=== PATIENT | male | born 1955 | race Caucasian/White ===

== ENCOUNTER → 2020-07-17 14:47 | Outpatient (REF) | payer BC, SELFPAY ==
--- NOTE | 2020-07-17 15:00 | CA_ITS ---
Transthoracic Echocardiogram Patient (Last, First, Middle): José Miguel Salazar R Gender: Male Date of : 1955 Age: 65 Procedure Date: 07/17/2020 Procedure Type: Transthoracic Echocardiogram Location: OP Height: 182.88 cm Weight: 80.74 kg BSA: 2.03 m2 Heart Rate: bpm BP: 118 / 60 mmHg Exotic Dancer: Referring MD: Babar Perrin MD Clay Plant Treater: Allen Kathleen MD Symptoms: Z86.79 PER HX THORACIC ANEURYSM Study Quality: Fair ECG Rhythm: Sinus Conclusions: - 1. Normal LV systolic and diastolic function 2. Severely dilated ascending aorta with no clear dissection flap 3. Moderately severe eccentric aortic regurgitation 4. Normal RV systolic pressure 5. No gross pericardial effusion Findings Left Ventricle Normal left ventricular size, thickness, and systolic function. The visually estimated ejection fraction is between 55-60%. Diastolic function is normal for age. Right Ventricle Normal right ventricular cavity size and systolic function. Atria The left atrium is normal in size. Aortic Valve There is holodiastolic flow reversal present in the descending aorta. Normal aortic valve structure and function. There is no aortic valve stenosis. There is moderate to severe aortic valve regurgitation. Mitral Valve Normal mitral valve structure and function. There is trace mitral valve regurgitation. There is no mitral valve stenosis. Pulmonic Valve The pulmonic valve is likely normal. There is trace pulmonic valve regurgitation. Tricuspid Valve The right ventricular systolic pressure is normal. The right ventricular systolic pressure is 22 mmHg. Normal right atrial pressure. There is no evidence of pulmonary hypertension. Great Vessels The pulmonary artery was not well visualized. There is severe dilatation of the ascending aorta measuring 5.40 cm. History reported of aortic dissection repair in November this year. There is no clear dissection SLAP noted Venous The inferior vena cava is normal in size and collapses greater than 50% with inspiration. Pericardium/Pleural There is no evidence of pericardial effusion. Prior Study Comparison No prior study available for comparison. Recommendations, Care & Conclusions Consider a VIRGNE if clinically appropriate. Measurements 2D Linear Measurements IVSd: 1.15 0.6-0.9/0.6-1.0 cm LVIDd: 4.92 3.9-5.3/4.2-5.9 cm LVIDd Index: 2.42 2.4-3.2/2.2-3.1 cm/m2 LVIDs: 3.79 2.0-3.6 cm LVPWd: 1.12 0.7-1.1 cm Ao Root: 3.90 2.1-3.5 cm LA Diam: 3.70 2.7-3.8/3.0-4.0 cm LAIDs Index: 1.82 1.5-2.3 cm/m2 LV Mass: 262.70 67-162/88-224 g LV Mass Index: 129.41 43-95/49-115 g/m2 LVOT Diam: 2.60 3.0+(-)1.3 cm 2D Systolic Function EF 4C: 49.30 >55% EF 2C: 58.80 >55% EF BiP: 55.40 >55% Mitral Valve MV Pk E: 0.57 MV PK A: 0.29 MV Decel Time: 306.00 E/A: 2.00 E'Lateral: 14.20 E'Medial: 11.30 E/E' Med: 5.10 E/E' Lat: 4.00 PHT: 90.00 MVA PHT: 2.44 Decel [place]: 1.87 Aortic Valve AoV Pk Torres: 1.40 AoV Mn Torres: 0.87 AoV VTI: 0.30 AoV Pk Grad: 8.00 Aov Mn Grad: 4.00 SONIA Cont.VTI: 4.36 AI Pk Torres: 3.38 AI [place]: 2.63 LVOT LVOT Pk Torres: 1.02 LVOT Mn Torres: 0.71 LVOT VTI: 0.24 LVOT Pk Grad: 4.00 LVOT Mn Grad: 2.00 LVOT Diam: 2.60 LVOT Area: 5.31 Diastolic Function MV Pk E: 0.57 MV Pk A: 0.29 E/A: 2.00 E'Medial: 11.30 E/E' Med: 5.10 E' Laterial: 14.20 E/E' Lat: 4.00 Tricuspid Valve TR Pk Torres: 2.17 TR Pk Grad: 19.00 RA Press: 3.00 RVSP: 22.00 Great Vessels Aorta Ao Root-2D: 3.90 2.0-3.7 cm Ao Asc: 5.40 2.1-3.4 cm Pulmonary Valve PV Pk Torres: 0.81 Peak PV Grad: 3.00 Updated in Other Vendor System with Status of Final Allen Kathleen MD electronically signed on 07/19/2020 1:47:46 PM with status of Final
[2020-07-17 16:06] LABS: MANUAL DIFF FLAG NO
[2020-07-17 16:15] LABS: Basophils Percent Auto 0.2 % (0-2); Eosinophils Absolute Auto 0.1 X10*3/uL (0.0-0.4); Eosinophils Percent Auto 2.4 % (0-4); Hematocrit 42.3 % (42-52); Hemoglobin 14.6 g/dl (14.0-18.0); Imm Gran Abs Auto 0.02 X10*3/uL (0.00-0.03); Imm Gran Pct Auto 0.4 % (0.0-0.4); Lymphocytes Absolute Auto 1.8 X10*3/uL (1.2-4.9); Lymphocytes Percent Auto 32.2 % (20-40); Mean Corpuscular HGB Conc 34.5 g/dl (31.0-36.0); Mean Corpuscular Hemoglobin 30.6 pg (27.0-33.0); Mean Corpuscular Volume 88.7 fL (80-98); Mean Platelet Volume 9.2 fL (9.4-12.4); Monocytes Absolute Auto 0.6 X10*3/uL (0.1-1.2); Neutrophils Percent Auto 54.8 % (45-73); Platelet Count 169 X10*3/uL (160-400); Red Blood Count 4.77 X10*6/uL (4.60-5.80); Red Cell Distribution Width 12.7 % (11.0-16.0); White Blood Count 5.5 X10*3/uL (4.8-10.8)
[2020-07-17 16:44] LABS: Alanine Aminotransferase 11 U/L (0-40); Albumin Level 4.1 g/dL (3.5-5.0); Alkaline Phosphatase 53 U/L (39-117); Anion Gap 16 (12-20); Aspartate Amino Transferase 15 U/L (5-37); Bilirubin Total 0.6 mg/dL (0.0-1.0); Blood Urea Nitrogen 18 mg/dL (9-16); C Reactive Protein 0.21 mg/dL (< or = 0.50); Calcium 8.5 mg/dL (8.4-10.2); Carbon Dioxide 28 mmol/L (22-29); Chloride 103 mmol/L (96-108); Estimated Glomerular Filt Rate > 60; Glucose Random 83 mg/dL (60-115); Potassium 4.6 mmol/l (3.3-5.1); Sodium 142 mmol/L (135-145); Total Protein 6.6 g/dL (6.5-8.0)
== END ==
LOC: HO.CARD 14:47
PROVIDERS: PCP Internal Medicine; Visit Provider Internal Medicine
DX: I10 Essential (primary) hypertension (principal); Z86.79 Personal history of other diseases of the circulatory system
CPT/HCPCS: 36415; 80053; 82550; 85025; 86140; 93306

== ENCOUNTER 2020-12-23 08:50 | Outpatient (REF) | payer BC, SELFPAY ==
--- NOTE | ~2020-12-23 | XR_ITS ---
EXAMINATION: XR FOOT, RIGHT CLINICAL INFORMATION: Pain. COMPARISON: None TECHNIQUE: AP, lateral, and oblique views of the right foot. FINDINGS: There is an oblique subacute/chronic appearing fracture through the lateral head of the 3rd middle phalanx. There appears to be partial osseous bridging across the fracture line. No additional fracture. No dislocation. Prominent joint space narrowing with marginal osteophytes throughout the interphalangeal joints as well as at the first metatarsophalangeal joint. Small plantar and dorsal calcaneal enthesophytes. XR/XR foot RT min 3V IMPRESSION: 1. Oblique, subacute/chronic appearing fracture through the lateral head of the 3rd middle phalanx. 2. 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 3. Plantar and dorsal calcaneal spurs.
[2020-12-23 09:37] LABS: MANUAL DIFF FLAG NO
[2020-12-23 09:44] LABS: Basophils Percent Auto 0.2 % (0-2); Eosinophils Absolute Auto 0.1 X10*3/uL (0.0-0.4); Eosinophils Percent Auto 2.1 % (0-4); Hematocrit 41.9 % (42-52); Imm Gran Abs Auto 0.01 X10*3/uL (0.00-0.03); Imm Gran Pct Auto 0.2 % (0.0-0.4); Lymphocytes Absolute Auto 1.8 X10*3/uL (1.2-4.9); Mean Corpuscular HGB Conc 33.4 g/dl (31.0-36.0); Mean Corpuscular Hemoglobin 29.9 pg (27.0-33.0); Mean Corpuscular Volume 89.3 fL (80-98); Mean Platelet Volume 9.8 fL (9.4-12.4); Monocytes Absolute Auto 0.7 X10*3/uL (0.1-1.2); Monocytes Percent Auto 13.6 % (2-11); Neutrophils Absolute Auto 2.3 X10*3/uL (2.0-8.3); Neutrophils Percent Auto 47.9 % (45-73); Platelet Count 168 X10*3/uL (160-400); Red Blood Count 4.69 X10*6/uL (4.60-5.80); Red Cell Distribution Width 13.5 % (11.0-16.0); White Blood Count 4.9 X10*3/uL (4.8-10.8)
[2020-12-23 09:56] LABS: Alanine Aminotransferase 11 U/L (0-40); Albumin Level 4.3 g/dL (3.5-5.0); Alkaline Phosphatase 47 U/L (39-117); Anion Gap 12 (12-20); Aspartate Amino Transferase 14 U/L (5-37); Bilirubin Total 0.9 mg/dL (0.0-1.0); Blood Urea Nitrogen 18 mg/dL (9-16); Calcium 9.2 mg/dL (8.4-10.2); Carbon Dioxide 27 mmol/L (22-29); Chloride 106 mmol/L (96-108); Cholesterol 90 mg/dL; Estimated Glomerular Filt Rate > 60; Glucose Fasting 89 mg/dL (60-99); HDL Cholesterol 57 mg/dL; LDL Cholesterol Calculated 27 mg/dl; Potassium 4.4 mmol/L (3.3-5.1); Sodium 141 mmol/L (135-145); Total Protein 6.8 g/dL (6.5-8.0); Triglycerides 31 mg/dL
[2020-12-23 10:15] LABS: Prostate Specific Antigen 1.31 ng/mL (<0.05-4.0)
== END 2020-12-23 08:51 | disposition home or self-care (01) ==
LOC: HO.LAB 08:50
PROVIDERS: PCP Internal Medicine; Visit Provider Internal Medicine
DX: Z00.00 Encounter for general adult medical examination without abnormal findings (principal); M79.671 Pain in right foot; Z12.5 Encounter for screening for malignant neoplasm of prostate
CPT/HCPCS: 36415; 73630; 80053; 80061; 84153; 85025

== ENCOUNTER 2021-12-20 07:33 | Outpatient (REF) | payer BC, SELFPAY ==
[2021-12-20 07:44] LABS: MANUAL DIFF FLAG NO
[2021-12-20 08:01] LABS: Basophils Percent Auto 0.5 % (0-2); Eosinophils Absolute Auto 0.2 X10*3/uL (0.0-0.4); Eosinophils Percent Auto 3.4 % (0-4); Hematocrit 43.5 % (42.0-52.0); Hemoglobin 14.9 g/dl (14.0-18.0); Imm Gran Abs Auto 0.02 X10*3/uL (0.00-0.03); Imm Gran Pct Auto 0.3 % (0.0-0.4); Lymphocytes Absolute Auto 2.5 X10*3/uL (1.2-4.9); Lymphocytes Percent Auto 38.4 % (20-40); Mean Corpuscular HGB Conc 34.3 g/dl (31.0-36.0); Mean Corpuscular Hemoglobin 30.2 pg (27.0-33.0); Mean Corpuscular Volume 88.1 fL (80.0-98.0); Mean Platelet Volume 9.2 fL (9.4-12.4); Monocytes Absolute Auto 0.7 X10*3/uL (0.1-1.2); Monocytes Percent Auto 10.3 % (2-11); Neutrophils Absolute Auto 3.1 x10*3/uL (2.0-8.3); Neutrophils Percent Auto 47.1 % (45-73); Platelet Count 184 X10*3/uL (160-400); Red Blood Count 4.94 X10*6/uL (4.60-5.80); Red Cell Distribution Width 12.8 % (11.0-16.0); White Blood Count 6.5 X10*3/uL (4.8-10.8)
[2021-12-20 08:22] LABS: Alanine Aminotransferase 9 U/L (0-40); Albumin Level 4.1 g/dL (3.5-5.0); Alkaline Phosphatase 51 U/L (39-117); Anion Gap 10 (12-20); Aspartate Amino Transferase 13 U/L (5-37); Blood Urea Nitrogen 17 mg/dL (9-16); Calcium 9.5 mg/dL (8.4-10.2); Carbon Dioxide 29 mmol/L (22-29); Chloride 107 mmol/L (96-108); Cholesterol 87 mg/dL; Estimated Glomerular Filt Rate > 60; Glucose Fasting 91 mg/dL (60-99); HDL Cholesterol 51 mg/dL; LDL Cholesterol Calculated 30 mg/dl; Potassium 4.3 mmol/L (3.3-5.1); Sodium 142 mmol/L (135-145); Total Protein 6.7 g/dL (6.5-8.0); Triglycerides 32 mg/dL
[2021-12-20 08:40] LABS: Prostate Specific Antigen 2.33 ng/mL (<0.05-4.0)
== END 2021-12-20 07:34 | disposition home or self-care (01) ==
LOC: HO.LAB 07:33
PROVIDERS: PCP Internal Medicine; Visit Provider Internal Medicine
DX: Z12.5 Encounter for screening for malignant neoplasm of prostate (principal); N40.0 Benign prostatic hyperplasia without lower urinary tract symptoms; Z86.73 Personal history of transient ischemic attack (TIA), and cerebral infarction without residual deficits
CPT/HCPCS: 36415; 80053; 80061; 84153; 85025

== ENCOUNTER → 2022-01-07 14:05 | Outpatient (REF) | payer BC, SELFPAY ==
--- NOTE | 2022-01-07 14:00 | CA_ITS ---
Transthoracic Echocardiogram Patient (Last, First, Middle): José Miguel Salazar R Gender: Male Date of : 1955 Age: 66 Procedure Date: 01/07/2022 Procedure Type: Transthoracic Echocardiogram Location: OP Height: 180.34 cm Weight: 81.19 kg BSA: 2.01 m2 Heart Rate: bpm BP: 110 / 54 mmHg Education Coordinator: SB Referring MD: Babar Perrin MD Church Communications Administrator: Allen Kathleen MD Symptoms: I35.1 AR MURMUR Study Quality: Good ECG Rhythm: Bradycardia Conclusions: - 1. Mildly dilated left ventricle with LVEF of 60 65% 2. Severe aortic regurgitation although this was not quantified 3. Severe enlargement of ascending aorta 4. Normal RV systolic pressure 5. No pericardial effusion Findings Left Ventricle Mildly increased left ventricular cavity size. There is normal left ventricular wall thickness. The left ventricular systolic function is normal. The visually estimated ejection fraction is between 60-65%. Spectral Doppler is indicative of a normal filling pattern. Right Ventricle Normal right ventricular cavity size and systolic function. Atria The left atrium is normal in size. There is no evidence of interatrial shunt. The right atrium is normal in size. Aortic Valve Normal aortic valve structure and function. There is no aortic valve stenosis. There is severe aortic valve regurgitation. Mitral Valve Normal mitral valve structure and function. There is trace mitral valve regurgitation. There is no mitral valve stenosis. Pulmonic Valve The pulmonic valve was not well visualized. Tricuspid Valve Normal tricuspid valve structure. There is trace tricuspid valve regurgitation. The right ventricular systolic pressure is normal. Normal right atrial pressure. There is no evidence of pulmonary hypertension. Great Vessels The pulmonary artery was not well visualized. There is severe dilatation of the ascending aorta measuring 5.10 cm. Venous The inferior vena cava is normal in size and collapses greater than 50% with inspiration. Pericardium/Pleural There is no evidence of pericardial effusion. Prior Study Comparison Changes noted compared to prior study dated: 07/17/2020. LV cavity appears to be mildly dilated. Aortic regurgitation appears to be severe. Finding discussed with Dr. Perrin Recommendations, Care & Conclusions Consider a VIRGEN if clinically appropriate. Measurements 2D Linear Measurements IVSd: 0.69 0.6-0.9/0.6-1.0 cm LVIDd: 6.11 3.9-5.3/4.2-5.9 cm LVIDd Index: 3.04 2.4-3.2/2.2-3.1 cm/m2 LVIDs: 4.45 2.0-3.6 cm LVPWd: 0.88 0.7-1.1 cm LA Diam: 3.60 2.7-3.8/3.0-4.0 cm LAIDs Index: 1.79 1.5-2.3 cm/m2 LV Mass: 234.25 67-162/88-224 g LV Mass Index: 116.54 43-95/49-115 g/m2 LVOT Diam: 2.70 3.0+(-)1.3 cm Mitral Valve MV Pk E: 0.77 MV PK A: 0.31 MV Decel Time: 173.00 E/A: 2.50 E'Lateral: 11.50 E'Medial: 9.57 E/E' Med: 8.10 E/E' Lat: 6.70 PHT: 51.00 MVA PHT: 4.[address]: 4.47 Aortic Valve AoV Pk Torres: 1.38 AoV Mn Torres: 0.93 AoV VTI: 0.28 AoV Pk Grad: 8.00 Aov Mn Grad: 4.00 SONIA Cont.VTI: 5.04 LVOT LVOT Pk Torres: 1.20 LVOT Mn Torres: 0.82 LVOT VTI: 0.25 LVOT Pk Grad: 6.00 LVOT Mn Grad: 3.00 LVOT Diam: 2.70 LVOT Area: 5.73 Diastolic Function MV Pk E: 0.77 MV Pk A: 0.31 E/A: 2.50 E'Medial: 9.57 E/E' Med: 8.10 E' Laterial: 11.50 E/E' Lat: 6.70 Right Ventricle TAPSE (mm): 20.30 TVS' Torres: 9.46 Tricuspid Valve TR Pk Torres: 2.16 TR Pk Grad: 19.00 RA Press: 3.00 RVSP: 22.00 Great Vessels Aorta Sinus of Valsalva: 3.84 2.0-3.[address] [place]: 4.23 1.7-3.4 cm Ao Asc: 5.10 2.1-3.4 cm Ao Arch: 4.40 Ao Desc: 1.30 Pulmonary Valve PV Pk Torres: 0.68 Peak PV Grad: 2.00 Updated in Other Vendor System with Status of Final Allen Kathleen MD electronically signed on 01/08/2022 4:58:26 PM with status of Final
== END ==
LOC: HO.CARD 14:05
PROVIDERS: Visit Provider Internal Medicine
DX: I35.1 Nonrheumatic aortic (valve) insufficiency (principal)
CPT/HCPCS: 93306

== ENCOUNTER → 2022-01-27 15:05 | Outpatient (BNVA) | payer BC, SELFPAY | PROVIDERS: PCP Internal Medicine; Referring Provider Internal Medicine; Visit Provider Internal Medicine Cardiovascular Disease | DX: I71.2 Thoracic aortic aneurysm, without rupture (principal); I35.1 Nonrheumatic aortic (valve) insufficiency | CPT/HCPCS: 93005 ==

== ENCOUNTER 2022-01-29 11:08 | Outpatient (REF) | payer BC, SELFPAY ==
[2022-01-29 11:55] LABS: Hematocrit 42.6 % (42.0-52.0); Hemoglobin 14.6 g/dl (14.0-18.0); Mean Corpuscular HGB Conc 34.3 g/dl (31.0-36.0); Mean Corpuscular Hemoglobin 30.5 pg (27.0-33.0); Mean Corpuscular Volume 88.9 fL (80.0-98.0); Mean Platelet Volume 9.4 fL (9.4-12.4); Platelet Count 169 X10*3/uL (160-400); Red Blood Count 4.79 X10*6/uL (4.60-5.80); Red Cell Distribution Width 12.8 % (11.0-16.0); White Blood Count 5.8 X10*3/uL (4.8-10.8)
[2022-01-29 12:01] LABS: INTERNATIONAL NORM RATIO 1.1 (0.9-1.1); Prothrombin Time 12.9 SEC (9.9-13.0)
[2022-01-29 12:10] LABS: Anion Gap 11 (12-20); Blood Urea Nitrogen 18 mg/dL (9-16); Calcium 9.6 mg/dL (8.4-10.2); Carbon Dioxide 27 mmol/L (22-29); Chloride 109 mmol/L (96-108); Estimated Glomerular Filt Rate > 60; Glucose Random 100 mg/dL (60-115); Potassium 4.4 mmol/L (3.3-5.1); Sodium 143 mmol/L (135-145)
[2022-01-29 12:18] LABS: B Type Natriuretic Peptide 105 pg/mL (<100)
== END 2022-01-29 11:09 | disposition home or self-care (01) ==
LOC: HO.LAB 11:08
PROVIDERS: PCP Internal Medicine; Visit Provider Internal Medicine Cardiovascular Disease
DX: I35.1 Nonrheumatic aortic (valve) insufficiency (principal)
CPT/HCPCS: 36415; 80048; 83880; 85027; 85610

== ENCOUNTER 2023-04-29 08:56 | Outpatient (REF) | payer BC, SELFPAY ==
[2023-04-29 09:20] LABS: MANUAL DIFF FLAG NO
[2023-04-29 10:06] LABS: Basophils Percent Auto 0.3 % (0-2); Eosinophils Absolute Auto 0.2 X10*3/uL (0.0-0.4); Eosinophils Percent Auto 2.3 % (0-4); Hematocrit 44.3 % (42.0-52.0); Hemoglobin 15.2 g/dl (14.0-18.0); Imm Gran Abs Auto 0.02 X10*3/uL (0.00-0.03); Imm Gran Pct Auto 0.3 % (0.0-0.4); Lymphocytes Absolute Auto 2.5 X10*3/uL (1.2-4.9); Lymphocytes Percent Auto 38.9 % (20-40); Mean Corpuscular HGB Conc 34.3 g/dl (31.0-36.0); Mean Corpuscular Hemoglobin 30.2 pg (27.0-33.0); Mean Corpuscular Volume 87.9 fL (80.0-98.0); Mean Platelet Volume 9.4 fL (9.4-12.4); Monocytes Absolute Auto 0.7 X10*3/uL (0.1-1.2); Monocytes Percent Auto 10.1 % (2-11); Neutrophils Absolute Auto 3.1 x10*3/uL (2.0-8.3); Neutrophils Percent Auto 48.1 % (45-73); Platelet Count 182 X10*3/uL (160-400); Red Blood Count 5.04 X10*6/uL (4.60-5.80); Red Cell Distribution Width 12.8 % (11.0-16.0); White Blood Count 6.5 X10*3/uL (4.8-10.8)
[2023-04-29 10:40] LABS: Alanine Aminotransferase 10 U/L (0-40); Albumin Level 4.2 g/dL (3.5-5.0); Alkaline Phosphatase 43 U/L (39-117); Anion Gap 10 (12-20); Aspartate Amino Transferase 13 U/L (5-37); Blood Urea Nitrogen 18 mg/dL (9-16); Calcium 9.4 mg/dL (8.4-10.2); Carbon Dioxide 27 mmol/L (22-29); Chloride 105 mmol/L (96-108); Cholesterol 79 mg/dL (<200); Estimated Glomerular Filt Rate > 60; Glucose Fasting 85 mg/dL (60-99); HDL Cholesterol 47 mg/dL (>40); LDL Cholesterol Calculated 26 mg/dL (<100); Potassium 4.2 mmol/L (3.3-5.1); Sodium 138 mmol/L (135-145); Triglycerides 33 mg/dL (<150)
[2023-04-29 11:00] LABS: Prostate Specific Antigen 2.26 ng/mL (<0.05-4.0)
== END 2023-04-29 08:57 | disposition home or self-care (01) ==
LOC: HO.LAB 08:56
PROVIDERS: PCP Internal Medicine; Visit Provider Internal Medicine
DX: N40.0 Benign prostatic hyperplasia without lower urinary tract symptoms (principal); I71.9 Aortic aneurysm of unspecified site, without rupture; Z86.73 Personal history of transient ischemic attack (TIA), and cerebral infarction without residual deficits; Z12.5 Encounter for screening for malignant neoplasm of prostate
CPT/HCPCS: 36415; 80053; 80061; 84153; 85025

== ENCOUNTER 2024-04-05 10:30 | Outpatient (AMB) | payer BC, SELFPAY ==
[2024-04-05 10:31] VITALS: BP 140/58; PULSE 72; BMI 24.5
--- NOTE | 2024-04-05 10:31 | MHC.OFFVIS ---
Vital Signs 04/05/24 10:31 04/05/24 14:54 Height 6 ft Weight 180 lb 12.465 oz BMI 24.5 BP 140/58 H 106/40 L Blood Pressure Location Lt brachial Lt brachial Position Sitting Sitting Pulse 72 Intake Visit Reasons: Follow-up Echo Intake Note: Follow-up after echo with ekg hearts good Logistics System Engineer Required: No Boat Patcher Plastic: Boat Patcher Plastic Present Accompanied by: Spouse Allergies No Known Allergies Allergy (Unverified 05/23/20 15:53) Medication List - Last Reconciled 04/05/24 by Allen Kathleen MD aspirin (Adult Low Dose Aspirin) 81 mg PO DAILY lisinopril 5 mg PO DAILY metoprolol succinate ER 50 mg PO DAILY HPI Comments Details: José Miguel comes after a long gap. He recently had echocardiogram at [facility] showed moderate ascending aortic dilatation 4.9 mm and moderate aortic regurgitation. He continues to have no symptoms. Continues to maintain activity level as tolerated. Denies any shortness of breath, orthopnea, PND. No lightheadedness, syncope. As per the is blood pressure at home is generally in no systolic 100-110 mm Hg. No prolonged palpitation irregular heartbeat. Takes all his medications. 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 Social History Patient Tobacco Use Status: Never used Tobacco Review of Systems Const Denies chills, Denies fatigue, Denies fever(s), Denies frequent falls, Denies weakness, Denies weight gain and Denies weight loss ENT Denies dizziness Card Denies chest pain, Denies leg edema, Denies lightheadedness, Denies palpitations, Denies dyspnea, Denies dyspnea on exertion, Denies orthopnea and Denies other (loss of consciousness) Resp Denies cough, Denies dyspnea and Denies dyspnea on exertion GI Denies hematochezia and Denies change in stool character Musc Denies abnormal gait, Denies muscle weakness, Denies numbness, Denies radiating pain into limb and Denies tingling Neuro Denies Abnormal speech present, Denies abnormal gait, Denies dizziness, Denies frequent falls, Denies numbness, Denies tingling and Denies weakness Endo Denies fatigue and Denies palpitations Physical Exam Vital Signs: Last Vital Signs Pulse 72 04/05/24 10:31 BP 140/58 H 04/05/24 10:31 BMI result Body Mass Index 24.5 Const General: cooperative, comfortable, alert and awake Nutritional Appearance: average body habitus Orientation/consciousness: patient oriented x3 Limitations: no limitations HEENT Head: Yes normocephalic and Yes atraumatic Eyes Other: Legally blind Neck Neck: Yes trachea midline, Yes supple and Yes no JVD Carotids: bounding pulses (Prominent pulsations) and no bruits Chest Chest palpation & inspection: normal inspection of the chest and other (Well-healed sternotomy scar) Resp Effort & Inspection: normal respiratory effort Auscultation: clear to auscultation bilaterally Cardio Jugular venous distension: no JVD Palpation: abnormal PMI displaced PMI Rate: regular rate Rhythm: regular rhythm Heart sounds: S1 normal heart sound present, S2 normal heart sound present and Murmur heart sound present diastolic mid, IV/ and other (All over the precordium. Positive water hammer pulse) Bruits: other (+ Duroziez sign) GI Percussion: Yes normal to percussion Skin General skin exam: no rashes or lesions noted Neuro General: patient oriented x3 and no focal motor deficits Speech: No Abnormal speech present Extrem General: Yes no clubbing, cyanosis or edema Psych Appearance: grossly normal Office Procedures EKG Details: EKG shows normal sinus rhythm with sinus arrhythmia with rightward axis [id number], Complete Assessment & Plan Assessment & Plan (1) Thoracic aortic aneurysm: Code(s): I71.2 - Thoracic aortic aneurysm, without rupture Category: Medical Plan: Thoracic aortic aneurysm with prior type 1 aortic dissection status post repair remotely. Has remained stable. He has residual moderate aortic regurgitation which is also clinically appreciated. There is no change in LV size or function. He has no cardiac symptoms at current point time. Management discussed. Would suggest genetic testing to assess for any genetic abnormality that may help with screening for the family. Continue vasodilators therapy with lisinopril. Continue metoprolol therapy. Continue low-dose aspirin therapy. Advised to avoid sudden strenuous isometric exercise. Encouraged to continue to participate in regular physical activity. Follow up in the clinic in 1 year's time, sooner p.r.n.. Thank you for allowing me to partake in his care Orders: Orders CA echo transthoracic complete 1 Year I71.2 - Thoracic aortic aneurysm, without rupture Referrals Genetics Referral I71.2 - Thoracic aortic aneurysm, without rupture Coding Level of Care Code Est Pt Level 4 (94280) Diagnoses Thoracic aortic aneurysm I71.2 CPT Codes EKG - CPT: 00059-[id number], Complete ([id number])
[2024-04-05 14:54] VITALS: BP 106/40
== END 2024-04-05 11:06 | disposition home or self-care (01) ==
PROVIDERS: PCP Internal Medicine; Visit Provider Internal Medicine Cardiovascular Disease
DX: I71.20 Thoracic aortic aneurysm, without rupture, unspecified (principal)
CPT/HCPCS: 93010; 99214

== ENCOUNTER → 2024-04-05 10:30 | Outpatient (BNVA) | payer BC, SELFPAY | PROVIDERS: PCP Internal Medicine; Visit Provider Internal Medicine Cardiovascular Disease | DX: I71.20 Thoracic aortic aneurysm, without rupture, unspecified (principal); Z79.82 Long term (current) use of aspirin; Z79.899 Other long term (current) drug therapy | CPT/HCPCS: 93005 ==

== ENCOUNTER 2024-11-28 15:17 | Outpatient (AMB) | payer BC, SELFPAY ==
--- NOTE | 2024-11-28 15:21 | A.OFFPC_ITS ---
Vital Signs 11/28/24 15:30 Height 6 ft Weight 184 lb 11.958 oz BMI 25.1 BP 110/50 L Blood Pressure Location Lt brachial Position Sitting Pulse 67 Pulse Source Pulse Oximeter Temp 97.1 F Temp Source Temporal Artery Scan Pulse Oximetry (%) 7 L Oxygen Delivery Method Room Air Intake Visit Reasons: establish care - see comments Intake Note: Patient is a new patient here to establish care for HTN, CVA. Transferring care from Dr. Jesse Perrin. Medical records have been requested today. Cobol Application Developer Required: No Accompanied by: Spouse Allergies No Known Allergies Allergy (Verified 11/28/24 15:47) Medication List - Last Reconciled 11/28/24 by Maximilian Jean-Baptiste PA-C aspirin (Adult Low Dose Aspirin) 81 mg PO DAILY lisinopril 5 mg PO DAILY metoprolol succinate ER 50 mg PO DAILY Tobacco use date assessed: 11/28/24 Fall risk assessment: No Falls in past year Last assessed Fall Risk: 11/28/24 Dental Screening Dental Screen Date: 11/28/24 Did you have a dental visit in the last 12 months?: Yes Did you have a dental problem in the last 6 months where you did not have access to dental care?: No Was dental information given to patient?: Patient has dentist HPI establish care - see comments HPI Details Patient is a 69-year-old male here today for a new patient visit. Previous PCP was Dr. Perrin. Patient has a past medical history significant for hypertension and history of aortic dissection status post repair in 2009. 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 He is followed by [facility] and thoracic surgeon Dr. Thompson are mildly dilated aortic root at 4.9 mm with moderate aortic regurg. He continues echocardiogram for evaluation Left hip and knee pain: notably his left hip and knee pain, which have resulted in compromised balance and frequent falls. He reports a noticeable discrepancy in leg length that may influence his instability. The progressive nature of his symptoms has affected his daily routines and mobility, with a significant challenge occurring when attempting to navigate stairs and complete basic activities like dressing. [facility] Medical History (Updated 11/30/24 @ 07:48 by Maximilian Jean-Baptiste PA-C) Legally blind Aortic regurgitation Thoracic aortic aneurysm Surgical History History of repair of dissecting aneurysm of descending thoracic aorta Family History Father Diabetes 1.5, managed as type 1 Mother No problems noted. Social History Housing: House Patient Tobacco Use Status: Never used Tobacco e-Cigarette/Vaping Use: Never Used service: No Current occupational status: disabled Cognitive needs: No Vision needs: Yes (Legally Blind) Questionnaire PHQ-9 Over the last 2 weeks, how often have you been bothered by any of the following problems? 1. Little interest or pleasure in doing things: not at all 2. Feeling down, depressed, or hopeless: not at all 3. Trouble falling or staying asleep, or sleeping too much: not at all 4. Feeling tired or having little energy: not at all 5. Poor appetite or overeating: not at all 6. Feeling bad about yourself - or that you are a failure or have let yourself or your family down: not at all 7. Trouble concentrating on things, such as reading the newspaper or watching television: not at all 8. Moving or speaking so slowly that other people could have noticed. Or the opposite - being so fidgety or restless that you have been moving around a lot more than usual: not at all 9. Thoughts that you would be better off or of hurting yourself in some way: not at all Total score: 0 Depression Screening Interpretation: Negative Depression Screening Done: Yes 51921 - PHQ-9 Billing: Yes Source: Developed by Drs. Tee Mckeon, Dena Watson, Panda Sheehan and colleagues, with an educational jose from [employer]. Thrive Questionnaire Date Thrive assessed: 11/28/24 I am a: Patient What is your living situation today?: I have a steady place to live Within the past 12 months, did the food you bought not last and you didn't have the money to get more?: Never true Within the past 12 months, did you worry whether your food would run out before you got money to buy more?: Never true Do you have trouble paying for medicines?: No Do you have trouble getting transportation to medical appointments?: No Do you have trouble paying your heating and electricity bill?: No Do you have trouble taking care of your child, family member or friend?: No Do you have trouble with day-to-day activities such as bathing, preparing meals, shopping, managing finances, etc.?: Yes Are you currently unemployed and looking for a job?: I choose not to answer this question Are you interested in more education?: No Please select the resources that you would like help with: None Currently or been in a relationship where the following occur: No concerns reported THRIVE Score: 0 AUDIT C Alcohol Use Questionnaire (AUDIT-C) 1. How often do you have a drink containing alcohol?: Monthly or less 2. How many drinks containing alcohol do you have on a typical day when you are drinking?: 1 or 2 3. How often do you have six or more drinks on one occasion?: Never Total Score: 1 MICKEY-7 AMB Questionnaire MICKEY-7 Feeling nervous, anxious, or on edge: 1 = Several days Not being able to stop or control worryin = Several days Worrying too much about different things: 1 = Several days Trouble relaxin = Several days Being so restless that it is hard to sit still: 0 = Not at all Becoming easily annoyed or irritable: 0 = Not at all Feeling afraid as if something awful might happen: 0 = Not at all Total MICKEY-7 score (0-4 normal; 5-9 mild; 10-14 moderate; 15-21 severe): 4 Source: Developed by Drs. Tee Mckeon, Dena Watson, Panda Sheehan and colleagues, with an educational jose from [employer]. MICKEY-7 Assessment Billing MICKEY-7 Assessment Tool: MIKCEY-7 Assessment 90083 Review of Systems Const Denies headache(s) Eyes Denies loss of vision ENT Denies vertigo, Denies dizziness, Denies headache(s) and Denies sore throat Card Denies chest pain, Denies leg edema and Denies lightheadedness Resp Denies cough, Denies hemoptysis and Denies wheezing GI Denies abdominal pain, Denies melena, Denies constipation, Denies diarrhea and Denies vomiting Denies dysuria, Denies urinary frequency and Denies urinary urgency Musc Denies arthralgias, Denies joint swelling, Denies numbness and Denies tingling Neuro Denies Abnormal speech present, Denies behavioral changes, Denies vertigo, Denies dizziness, Denies headache(s), Denies loss of vision, Denies memory loss, Denies numbness and Denies tingling Psych Denies anxiety, Denies behavioral changes, Denies depression, Denies memory loss and Denies panic attacks Otto/Lymph Denies easy bleeding and Denies easy bruising Aller/Immun Denies wheezing Physical exam (Primary Care) Vital Signs: Last Vital Signs Temp 97.1 F 11/28/24 15:30 Pulse 67 11/28/24 15:30 BP 110/50 L 11/28/24 15:30 Pulse Ox 7 L 11/28/24 15:30 Oxygen Delivery Method Room Air 11/28/24 15:30 BMI result Body Mass Index 25.1 Tobacco/Smoking Status: Tobacco use Status Tobacco use date assessed 11/28/24 11/28/24 15:42 Patient Tobacco Use Status Never used Tobacco 11/28/24 15:21 e-Cigarette/Vaping Use Never Used 11/28/24 15:42 PHQ-9: PHQ-9 Score PHQ-9: Total score 0 11/28/24 15:47 Depression Screening Interpretation: Negative Thrive Assessment: Date of Thrive Assessment Date Thrive assessed 11/28/24 11/28/24 15:42 Currently or been in a relationship where the following occur: No concerns reported Const General: healthy appearing, no acute distress, alert and awake Nutritional Appearance: well nourished Orientation/consciousness: oriented to person, oriented to place and oriented to time HENMT Ears: TM's normal bilaterally General nose exam: Normal nasal mucous membranes and turbinates present Eyes Conjunctivae: conjunctivae normal Sclerae: sclerae normal Pupils: Equal, round and reactive pupils present Neck Neck: Yes no lymphadenopathy and Yes no JVD Thyroid: Thyroid normal Carotids: no bruits Resp Effort & Inspection: normal respiratory effort and not tachypneic Auscultation: no crackles, no rales, no rhonchi and no wheezes Cardio Rate: regular rate Rhythm: regular rhythm Heart sounds: no murmurs and normal S1 and S2 GI Palpation (GI): Soft to palpation, nontender, no hepatomegaly and no splenomegaly Auscultation: normal bowel sounds Back/Spine/Pelvis Other: PATIENT'S BELT HIS SEEMS TO BE MALALIGNED Skin General skin exam: no rashes or lesions noted and dry skin Neuro General: oriented to person, oriented to place and oriented to time Cranial nerves: Yes Equal, round and reactive pupils present Speech: No Abnormal speech present Gait exam (Neuro): Normal gait present Motor exam (neuro): no tremor noted Extrem Other: PATIENT AMBULATING WITH THE ASSISTANCE FROM HIS , DOES APPEAR TO HAVE A LEANED TO THE LEFT STANCE. HAS LIMITED RANGE OF MOTION OF THEY LEFT HIP DUE TO STIFFNESS. Right upper extremity: full ROM Left upper extremity: full ROM Right lower extremity: full ROM; no edema Left lower extremity: full ROM; no edema Psych Mental Status: mental status grossly normal Speech and movement: Normal speech and movement present Affect: normal affect Attitude: cooperative Thought process: Normal thought process present Coding Level of Care Code New Pt Level 4 (77172) Diagnoses Aortic valve insufficiency, etiology of cardiac valve disease unspecified I35.1 Cardiac valve disease etiology: etiology unspecified Thoracic aortic aneurysm (TAA), unspecified part, unspecified whether ruptured I71.20 Presence of rupture: unspecified whether ruptured Thoracic aorta location: unspecified History of embolic stroke Z86.73 Left hip pain M25.552 Chronic pain of left knee M25.562; G89.29 Chronicity: chronic Screening for diabetes mellitus (DM) Z13.1 Left shoulder tendinitis M77.8 Additional Codes PHQ-9 - 10676 - PHQ-9 Billing: Yes ([id number]) MICKEY-7 Assessment Billing - MICKEY-7 Assessment Tool: MICKEY-7 Assessment 81114 ([id number]) Assessment & Plan Assessment & Plan (1) Aortic regurgitation: Code(s): I35.1 - Nonrheumatic aortic (valve) insufficiency Category: Medical Qualifiers: Cardiac valve disease etiology: etiology unspecified Qualified Code(s): I35.1 - Nonrheumatic aortic (valve) insufficiency Plan: As per HPI patient follows cardiology annually and gets echocardiograms. He has no overt signs of heart failure. (2) Thoracic aortic aneurysm: Code(s): I71.2 - Thoracic aortic aneurysm, without rupture Category: Medical Qualifiers: Presence of rupture: unspecified whether ruptured Thoracic aorta location: unspecified Qualified Code(s): I71.20 - Thoracic aortic aneurysm, without rupture, unspecified Plan: Patient again followed by Cardiology and has seen thoracic surgery in the past to aortic dissection. (3) History of embolic stroke: Code(s): Z86.73 - Personal history of transient ischemic attack (TIA), and cerebral infarction without residual deficits Category: Medical Plan: Patient legally blind secondary to embolic stroke after his aortic dissection surgery. (4) Left hip pain: Code(s): M25.552 - Pain in left hip Category: Medical Plan: Obtain x-ray of the left hip to evaluate for arthritis or other conditions. Discussed the option of physical therapy contingent on x-ray findings. (5) Left knee pain: Code(s): M25.562 - Pain in left knee Category: Medical Qualifiers: Chronicity: chronic Qualified Code(s): M25.562 - Pain in left knee; G89.29 - Other chronic pain Plan: As above (6) Screening for diabetes mellitus (DM): Code(s): Z13.1 - Encounter for screening for diabetes mellitus Category: Medical Plan: As per HPI (7) Left shoulder tendinitis: Code(s): M77.8 - Other enthesopathies, not elsewhere classified Category: Medical Plan: Include shoulder in scheduled imaging to assess cause of pain following heavy activity. Potentiality of introducing shoulder exercises after diagnostic clarity. Will evaluate the left shoulder with x-ray. Orders: Orders XR knee LT 3V 11/28/24 M25.562 - Pain in left knee XR hip LT min 2V 11/28/24 M25.552 - Pain in left hip Comprehensive [place]. Panel Fast 11/28/24 Z13.1 - Encounter for screening for diabetes mellitus Complete Blood Count no Diff 11/28/24 I35.1 - Nonrheumatic aortic (valve) insufficiency Prostate Specific Antigen Scr 11/28/24 I35.1 - Nonrheumatic aortic (valve) insufficiency, Z12.5 - Encounter for screening for malignant neoplasm of prostate Microalbumin, Random (w Creat) 11/28/24 I35.1 - Nonrheumatic aortic (valve) insufficiency XR shoulder LT 1V Today M77.8 - Other enthesopathies, not elsewhere classified XR pelvis min 3V Today R10.2 - Pelvic and perineal pain
[2024-11-28 15:30] VITALS: BP 110/50; PULSE 67; TEMP 36.2; O2SAT 7; BMI 25.1
== END 2024-11-28 16:32 | disposition home or self-care (01) ==
PROVIDERS: PCP Internal Medicine; Visit Provider Physician Assistant
DX: I35.1 Nonrheumatic aortic (valve) insufficiency (principal); I71.20 Thoracic aortic aneurysm, without rupture, unspecified; Z86.73 Personal history of transient ischemic attack (TIA), and cerebral infarction without residual deficits; M25.552 Pain in left hip; M25.562 Pain in left knee; G89.29 Other chronic pain; Z13.1 Encounter for screening for diabetes mellitus; M77.8 Other enthesopathies, not elsewhere classified

== ENCOUNTER → 2024-11-28 15:17 | Outpatient (BNVA) | payer BC, SELFPAY | PROVIDERS: PCP Internal Medicine; Visit Provider Physician Assistant | DX: I35.1 Nonrheumatic aortic (valve) insufficiency (principal); I71.20 Thoracic aortic aneurysm, without rupture, unspecified; M25.552 Pain in left hip; M25.562 Pain in left knee; G89.29 Other chronic pain; M77.8 Other enthesopathies, not elsewhere classified; I69.398 Other sequelae of cerebral infarction; H54.3 Unqualified visual loss, both eyes | CPT/HCPCS: 96127 ==

== ENCOUNTER 2024-12-02 08:05 | Outpatient (REF) | payer BC, SELFPAY ==
--- NOTE | ~2024-12-02 | XR_ITS ---
CLINICAL HISTORY: R10.2 - Pelvic and perineal pain Radiograph of the pelvis, single view Comparison: None Findings: No fracture or dislocation. Moderate to severe degenerative change of the right hip. Marked, severe degenerative change of the left hip. Preserved pubic symphysis. Mild degenerative change of the sacroiliac joints. Moderate lower lumbar degenerative change. Bone mineralization is normal. Vascular calcifications. Impression: No acute findings. Severe degenerative change of the left. This document has been electronically signed by: Estelle Garcia MD on 12/04/2024 15:45:47
--- NOTE | ~2024-12-02 | XR_ITS ---
CLINICAL HISTORY: M25.552 - Pain in left hip Radiographs of the left hip, 2 views Comparison: CR/SR - XR PELVIS 1-2V - 12/02/24 09:15 EDT Findings: Severe degenerative change of the left including severe joint space narrowing with remodeling of the femoral head and large osteophytosis. There is lucency which is diagonal overlying the femoral head and osteophytes, best seen on the lateral view is attributed to artifact and chronic lucency within the osteophytes. No dislocation. 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 Bone mineralization is normal. No soft tissue swelling. Vascular calcifications. Impression: No acute findings. Severe degenerative change of the left hip. This document has been electronically signed by: Estelle Garcia MD on 12/04/2024 15:14:17
--- NOTE | ~2024-12-02 | XR_ITS ---
CLINICAL HISTORY: M25.562 - Pain in left knee Radiographs of the left knee, 3 views Comparison: None Findings: There is no fracture or dislocation. Mild medial tibiofemoral compartment joint space narrowing with trace osteophytosis. Trace patellofemoral compartment osteophytosis. Bone mineralization is normal. No knee joint effusion. No soft tissue swelling. Impression: No acute findings. Mild degenerative change. This document has been electronically signed by: Estelle Garcia MD on 12/04/2024 15:09:27
--- NOTE | ~2024-12-02 | XR_ITS ---
CLINICAL HISTORY: M77.8 - Other enthesopathies, not elsewhere classified Radiographs of the left shoulder, 3 views, 4 images Comparison: None Findings: No fracture or dislocation. Narrowed acromiohumeral interval. Severe acromioclavicular joint space narrowing with mild osteophytosis. No glenohumeral joint space narrowing or definitive osteophytosis. Bone mineralization is normal. No soft tissue swelling. Impression: No acute findings. Narrowed acromiohumeral interval likely indicates rotator cuff pathology. Severe joint space narrowing of the acromioclavicular joint, degenerative. This document has been electronically signed by: Estelle Garcia MD on 12/04/2024 15:08:53
[2024-12-02 09:18] LABS: Hematocrit 42.8 % (42.0-52.0); Hemoglobin 14.7 g/dl (14.0-18.0); Mean Corpuscular HGB Conc 34.3 g/dl (31.0-36.0); Mean Corpuscular Hemoglobin 29.8 pg (27.0-33.0); Mean Corpuscular Volume 86.6 fL (80.0-98.0); Mean Platelet Volume 8.9 fL (9.4-12.4); Platelet Count 205 X10*3/uL (160-400); Red Blood Count 4.94 X10*6/uL (4.60-5.80); White Blood Count 7.4 X10*3/uL (4.8-10.8)
[2024-12-02 09:55] LABS: Creatinine Urine 220.73 mg/dL; Microalbum/Creatinine Ratio Ur 3.6 ug/mg cr (<30)
[2024-12-02 10:18] LABS: Alanine Aminotransferase 7 U/L (0-40); Albumin Level 4.1 g/dL (3.5-5.0); Alkaline Phosphatase 50 U/L (39-117); Anion Gap 10 (12-20); Aspartate Amino Transferase 15 U/L (5-37); Bilirubin Total 0.9 mg/dL (0.0-1.0); Blood Urea Nitrogen 19 mg/dL (9-16); Calcium 9.3 mg/dL (8.4-10.2); Carbon Dioxide 27 mmol/L (22-29); Chloride 108 mmol/L (96-108); Estimated Glomerular Filt Rate > 60; Glucose Fasting 88 mg/dL (60-99); Potassium 4.4 mmol/L (3.3-5.1); Sodium 141 mmol/L (135-145); Total Protein 6.9 g/dL (6.5-8.0)
== END 2024-12-02 08:06 | disposition home or self-care (01) ==
LOC: HO.XRAY 08:05
PROVIDERS: PCP Physician Assistant; Visit Provider Physician Assistant
DX: M25.552 Pain in left hip (principal); M25.562 Pain in left knee; M77.8 Other enthesopathies, not elsewhere classified; Z12.5 Encounter for screening for malignant neoplasm of prostate; I35.1 Nonrheumatic aortic (valve) insufficiency; Z13.1 Encounter for screening for diabetes mellitus
CPT/HCPCS: 36415; 72170; 73020; 73502; 73562; 80053; 82043; 82570; 84153; 85027

== ENCOUNTER → 2024-12-02 09:03 | Outpatient (BNV) | payer BC, SELFPAY | PROVIDERS: PCP Physician Assistant; Visit Provider Radiology Diagnostic Radiology | DX: M16.12 Unilateral primary osteoarthritis, left hip (principal); M25.562 Pain in left knee; M19.012 Primary osteoarthritis, left shoulder | CPT/HCPCS: 72170; 73020; 73502; 73562 ==

== ENCOUNTER 2025-01-25 14:32 | Outpatient (AMB) | payer BC, SELFPAY ==
[2025-01-25 14:43] VITALS: BMI 25.0
--- NOTE | 2025-01-25 14:43 | A.OFFVIS_ITS ---
Vital Signs 01/25/25 14:43 Height 6 ft Weight 184 lb BMI 25.0 Intake Visit Reasons: CALL CENTER RECEPTIONIST- Left hip OA Intake Note: José Miguel is a 69 year old male who is legally blind, presents today with his Teodora as a new patient for a evaluation of his left hip OA. Patient reports ongoing pain for a couple years and has worsen . He notices that his pain is on the lateral aspect of the hip. His pain is worse when he is standing and walking. No groin or radiating pains that he can recall. Patient denies numbness or tingling and states he has involuntary movement in his ankle. He also has a discrepancy in length and his left toes is amputated and partial partail amputation in the rest of his toes on his left side. Allergies No Known Allergies Allergy (Verified 01/25/25 14:59) HPI HPI CALL CENTER RECEPTIONIST- Left hip OA: Details: Mr. Salazar is a 69-year-old male who presents the office today for evaluation of left hip pain. It is important to note that the patient does have a past medical history significant for an aortic aneurysm 15 years ago, followed by Dr. 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 Kathleen. After the aortic aneurysm was repaired the patient underwent several additional complications including microemboli to the left toes resulting in amputation and a stroke affecting the occipital lobe and therefore resulting in him losing his vision. 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 Social History Housing: House Patient Tobacco Use Status: Never used Tobacco e-Cigarette/Vaping Use: Never Used service: No Current occupational status: disabled Cognitive needs: No Vision needs: Yes (Legally Blind) Review of Systems Const All systems reviewed & are unremarkable except as noted in HPI and below Physical Exam Vital Signs: BMI result Body Mass Index 25.0 Const General: cooperative, healthy appearing and no acute distress Resp Effort & Inspection: normal respiratory effort and able to speak in complete sentences Extrem Other: Left hip: Significant leg length discrepancy. Significant limitations with internal and external rotations. Able to perform a straight leg raise. Trendelenburg gait. Assessment & Plan Assessment & Plan (1) Osteoarthritis of left hip: Code(s): M16.12 - Unilateral primary osteoarthritis, left hip Category: Medical Plan Mr. Salazar is a 69-year-old male who presents the office today for evaluation of left hip pain. It is important to note that the patient does have a past medical history significant for an aortic aneurysm 15 years ago, followed by Dr. 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 Kathleen. After the aortic aneurysm was repaired the patient underwent several additional complications including microemboli to the left toes resulting in amputation and a stroke affecting the occipital lobe and therefore resulting in him losing his vision. Dr. Sena was available to me the patient with me in the office today in a collaborative treatment plan was created. Recommendation is that the patient see his cardiothoracic surgeon as well as his plasterer apprentice to discuss his risk assessment to undergo surgery. Unfortunately, with the patient's past medical history it is unlikely that our facility is able to accommodate an elective surgery safely. This was also discussed with the patient. Patient will follow up after his risk assessment with cardiology and Cardiothoracic surgery. X-rays of the left which were obtained on 12/02/2024 revealed severe left hip osteoarthritis. Coding Level of Care Code New Pt Level 4 (30701) Diagnoses Osteoarthritis of left hip M16.12
== END 2025-01-25 16:00 | disposition home or self-care (01) ==
LOC: HO.HOS 14:33
PROVIDERS: PCP Physician Assistant; Visit Provider Physician Assistant
DX: M16.12 Unilateral primary osteoarthritis, left hip (principal)
CPT/HCPCS: 99204

== ENCOUNTER → 2025-03-27 08:54 | Outpatient (REF) | payer BC, SELFPAY ==
--- NOTE | 2025-03-27 08:56 | CA_ITS ---
Transthoracic Echocardiogram Patient (Last, First, Middle): José Miguel Salazar R Gender: Male Date of : 1955 Age: 70 Procedure Date: 03/27/2025 Procedure Type: Transthoracic Echocardiogram Location: OP Height: 182.88 cm Weight: 81.65 kg BSA: 2.04 m2 Heart Rate: bpm BP: 122 / 60 mmHg Medical Facilities Section Director: Referring MD: Allen Kathleen MD Symptoms: I71.2 - Thoracic aortic aneurysm, without rupture Study Quality: Good ECG Rhythm: Sinus Conclusions: - The left ventricular systolic function is normal. The visually estimated ejection fraction is between 60-65%. - There is moderate to severe aortic valve regurgitation. - There is mild dilatation of the sinuses of Valsalva measuring 4.10 cm and moderate dilatation of the ascending aorta measuring 4.90 cm. - Ascending aorta not well visualized. Consider CTA for further evaluation. Findings Left Ventricle Normal left ventricular cavity size. There is normal left ventricular wall thickness. The left ventricular systolic function is normal. The visually estimated ejection fraction is between 60-65%. There is no evidence of regional wall motion abnormalities. Diastolic function is normal for age. Right Ventricle Normal right ventricular cavity size and systolic function. Atria Both atria are normal in size. Aortic Valve There is a normal trileaflet aortic valve. There is no aortic valve stenosis. There is moderate to severe aortic valve regurgitation. Mitral Valve The mitral valve appears normal. There is no mitral valve regurgitation. There is no mitral valve stenosis. Pulmonic Valve The pulmonic valve is likely normal. Tricuspid Valve There is mild tricuspid valve regurgitation. There is no evidence of pulmonary hypertension. Great Vessels There is mild dilatation of the sinuses of Valsalva measuring 4.10 cm and moderate dilatation of the ascending aorta measuring 4.90 cm. Venous The inferior vena cava is normal in size and collapses greater than 50% with inspiration. Pericardium/Pleural There is no evidence of pericardial effusion. Prior Study Comparison No significant change compared to prior study dated: 01/07/2022. Measurements 2D Linear Measurements IVSd: 1.07 0.6-0.9/0.6-1.0 cm LVIDd: 5.36 3.9-5.3/4.2-5.9 cm LVIDd Index: 2.63 2.4-3.2/2.2-3.1 cm/m2 LVIDs: 3.50 2.0-3.6 cm LVPWd: 1.01 0.7-1.1 cm Ao Root: 4.10 2.1-3.5 cm LA Diam: 3.70 2.7-3.8/3.0-4.0 cm LAIDs Index: 1.81 1.5-2.3 cm/m2 LV Mass: 268.15 67-162/88-224 g LV Mass Index: 131.45 43-95/49-115 g/m2 LVOT Diam: 2.70 3.0+(-)1.3 cm 2D Systolic Function EF 4C: 69.00 >55% EF 2C: 54.30 >55% EF BiP: 64.00 >55% Mitral Valve MV Pk E: 0.45 MV PK A: 0.39 MV Decel Time: 158.00 E/A: 1.20 E'Lateral: 13.80 E'Medial: 9.03 E/E' Med: 5.00 E/E' Lat: 3.30 PHT: 46.00 MVA PHT: 4.78 Decel [place]: 2.87 Aortic Valve AoV Pk Torres: 1.38 AoV Mn Torres: 0.89 AoV VTI: 0.33 AoV Pk Grad: 8.00 Aov Mn Grad: 4.00 SONIA Cont.VTI: 4.95 LVOT LVOT Pk Torres: 1.22 LVOT Mn Torres: 0.77 LVOT VTI: 0.28 LVOT Pk Grad: 6.00 LVOT Mn Grad: 3.00 LVOT Diam: 2.70 LVOT Area: 5.73 Diastolic Function MV Pk E: 0.45 MV Pk A: 0.39 E/A: 1.20 E'Medial: 9.03 E/E' Med: 5.00 E' Laterial: 13.80 E/E' Lat: 3.30 Right Ventricle TAPSE (mm): 20.00 TVS' Torres: 9.00 Tricuspid Valve TR Pk Torres: 1.98 TR Pk Grad: 16.00 RA Press: 3.00 RVSP: 19.00 Great Vessels Aorta Ao Root-2D: 4.10 2.0-3.7 cm Sinus of Valsalva: 4.10 2.0-3.5 cm Ao Asc: 4.90 2.1-3.4 cm Pulmonary Valve PV Pk Torres: 0.86 Peak PV Grad: 3.00 Updated in Other Vendor System with Status of Final Laith Pham MD electronically signed on 03/28/2025 1:41:26 PM with status of Final
--- OUTSIDE RECORDS SUMMARY | 2025-03-27 09:19 | XMS_ITS | Clinical Summary ---
Author Organization [facility] Address [address] [place] [address] Phone Care Team Providers Care Environmental Compliance Inspector Name Role Phone Steven Moran MD Primary Care Provid er Medications aspirin (ADULT LOW DOSE ASPIRIN) 81 MG EC tablet 11/13/2009 Active lisinopril (PRINIVIL,ZESTRI L) 5 MG tablet Take 1 tablet by mouth every morning. 01/26/2025 Active metoprolol succinate (TOPROL-XL) 50 MG 24 hr tablet Take 1 tablet by mouth every morning. 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 11/10/2009 Encounters Date Type Department Care Team Description 02/14/2025 12:30 PM EDT Office Visit [facility] Department of Orthopaedic Surgery, Arthroplasty Service [address], 3rd Floor, [address] [place] [address] Fahad Whitaker MD, PhD Primary osteoarthritis of left hip (Primary Dx) 02/14/2025 Ancillary Orders [facility] [address] [place] [address] Fahad Whitaker MD, PhD 02/14/2025 Ancillary Orders [facility] [address] [place] [address] Fahad Whitaker MD, PhD 02/14/2025 Ancillary Orders [facility] [address] [place] [address] Fahad Whitaker MD, PhD 02/14/2025 Ancillary Orders [facility] [address] [place] [address] Fahad Whitaker MD, PhD from Last 3 Months Social History Tobacco Use Types Packs/Day Years Used Date Smoking Tobacco: Never Assessed Education Answer Date Recorded Are you interested in more education? Not on corrie e 02/05/2025 Are you concerned about learning? Not on file 02/05/2025 No 02/05/2025 No 02/05/2025 Digital Access Answer Date Recorded No 02/05/2025 No 02/05/2025 Reliable internet access at home? Not on file 02/05/2025 Device with a working camera? Not on file Sex and Gender Information Value Date Recorded Sex Assigned at Not on file Legal Sex Male 3:10 PM EDT Gender Identity Not on file Sexual Orientation Not on file Last Filed Vital Signs Vital Sign Reading Time Taken Comments Blood Pressure - - Pulse - - Temperature - - Respiratory Rate - - Oxygen Saturation - - Inhaled Oxygen Concentration - - Weight 81.2 kg (179 lb) 02/14/2025 1:17 PM EDT Height 181.5 cm (5' 11.46 ) 02/14/2025 1:17 PM E DT Body Mass Index 24.65 02/14/2025 1:17 PM EDT Plan of Treatment Health Maintenance Due Date Last Done Comments Adult Td,Tdap Booster 1957 CREATININE LEVEL 1957 LIPID PANEL 1957 POTASSIUM LEVEL 1957 DEPRESSION SCREENING 1969 SMOKING Hx and SMOKELESS TOB ACCO SCREENING 1970 HEPATITIS C SCREENING 1975 COLOGUARD 2002 COLONOSCOPY 2002 COLORECTAL CANCER SCREENING 2002 FIT TEST 2002 FOBT 2002 SIGMOIDOSCOPY 2002 VIRTUAL COLONOSCOPY 2002 PNEUMOCOCCAL VACCINES (50+ y ears) (1 of 1 - PCV) 2007 ZOSTER VACCINES (1 of 2) 2007 RSV VACCINE (1 - Risk 60-74 years 1-dose series) 2017 COVID-19 VACCINE (2023-2 5 season) 2024 HEPATITIS A VACCINES Aged Out No long er eligible based on patient's age to complete this topic HIB VACCINES Aged Out No longer eligi ble based on patient's age to complete this topic MENINGOCOCCAL VACCINES (ACWY) Aged Out No longer eligible based on patient's age to complete this topic MENINGOCOCCAL VACCINES (B) Aged Out N o longer eligible based on patient's age to complete this topic Medical Devices Not on file Insurance [facility] Care Teams Environmental Compliance Inspector Relationship Specialty Start Date End Date Steven Moran MD [address] [place] [id number] PCP - General Internal Medicine 02/05/25 Additional Source Comments The information contained in this document represents components of the legal health record. It is not the complete legal health record.[facility]
--- OUTSIDE RECORDS SUMMARY | 2025-03-27 09:20 | XMS_ITS | Patient Health Record ---
Author Organization [facility] Address [address] [place] [address] Care Team Providers Care Virtualization Consultant Name Role Phone Marychuy (RETIRED) Babar LANDON Primary Care Provide r Unavailable Tee Villalobos Unavailable [phone] Reason For Referral No Information Medications Medication SIG (Take, Route, Fr equency, Duration) Notes Start Date End Date Status MoviPrep 100 GM as directed Orally a s directed for 1 dose 03/22/2014 Active Aspir-81 Active Metoprolol Succinate ER Active Problems Problem Type SNOMED Code ICD Code Onset Dates Problem Status W/U Status Risk Notes Problem Colon cancer screening (481562216) Colon cancer screening (V76.51) Active confirmed Problem Long-term use of aspirin therapy (V58.66) Active confirmed Plan Of Treatment Future Test Test Name Order Date COLONOSCOPY 03/22/2014 Insurance Providers Payer Name Payer Address Payer Phone Subscriber Number Group Number Insured Name Patient Relationship to Insured Coverage Start Date Coverage End Date [facility] [address] [place] [address] [id number] STEPHEN METZ Self - patient is the insured Medical (General) History Medical History History ICD Code Denies [place],DM,Lung disease,renal disease Blind as described below HTN IVC Filter CVA's in relation to his thoracic aortic dissection as described below Surgical History Surgery Date(Month/Year) Thoracic aortic dissection a t [facility] with subsequent surgery and grafting--he had subsequent blindness,CVA's, loss of sensation and some motor on the left UE, loss of some toes on both feet 11/2009 Broken wrist
== END ==
LOC: HO.CARD 08:54
PROVIDERS: PCP Internal Medicine; Visit Provider Internal Medicine Cardiovascular Disease
DX: I71.20 Thoracic aortic aneurysm, without rupture, unspecified (principal)
CPT/HCPCS: 93306

== ENCOUNTER → 2025-03-27 08:56 | Outpatient (BNV) | payer BC, SELFPAY | PROVIDERS: PCP Internal Medicine; Visit Provider Internal Medicine | DX: I35.1 Nonrheumatic aortic (valve) insufficiency (principal); I71.21 Aneurysm of the ascending aorta, without rupture | CPT/HCPCS: 93306 ==

== ENCOUNTER → 2025-04-03 09:00 | Outpatient (REF) | payer BC, SELFPAY ==
--- NOTE | ~2025-04-03 | NM_ITS ---
Lexiscan Myocardial perfusion study Indication: Evaluate for myocardial ischemia Technique: The patient was brought in for a Lexiscan perfusion study on 04/02/2025 and was injected 0.4 mg of Lexiscan intravenously. Within a minute of this injection 30 mCi of sestamibi was given intravenously. Images were obtained using the SPECT gamma camera interlaced with the gating device. Images were obtained in supine position. Resting perfusion study was performed on 04/04/2025. Patient was administered 30 mCi of sestamibi intravenously at rest. Images were then obtained in supine position. Images obtained without without CT attenuation. Total DLP 68 mGy-cm. Images were processed with the software and compared side to side in short axis, horizontal long axis and vertical long axis views. Findings: The stress perfusion study showed nonattenuated images show mildly reduced uptake in the inferior and inferoseptal wall of the LV myocardium. Remainder of the LV myocardium is normally perfused. Attenuated corrected images show mildly reduced uptake in the apex of the LV myocardium. The gated study shows normal LV systolic function with calculated LVEF of 59%. LV cavity is mildly to moderately dilated in size. The gated study shows normal systolic wall thickening and contraction of segments. Resting study shows no change in perfusion pattern compared to stress perfusion study. Gating at rest reveals normal systolic wall motion with ejection fraction at 63%. The findings are consistent with normal myocardial perfusion. NM/NM cardiolite stress test Impression: 1. Myocardial perfusion imaging study shows normal myocardial perfusion 2. Gated LVEF is 59% 3. Transient ischemic dilatation not present but LV cavity is dilated Nondiagnostic changes on EKG. Electronically signed by: Allen Kathleen MD 04/04/2025 05:53 PM EDT
--- NOTE | 2025-04-03 09:04 | CA_ITS ---
Acquisition Time: 2025-04-03 09:23:51 Total Exercise Time: 00:02:00 Test Indications: AORTIC ANEURYSM Medications: METOPROLOL LISINOPRIL ASA Protocol: LEXISCAN Max HR: 105 BPM 69% of Pred: 152 BPM Max BP: 126/68 mmHG Max Work Load: 1.0 METS Pharmacological stress test with Lexiscan while pt marches in his chair, with reports of leg heaviness and warmth, with isolated PACs and PVCs, with normotensive response to injection. Nondiagnostioc EKG for ischemia. In recovery, pt treated with IVP Aminophylline 75 mg to reverse Lexiscan after which pt feeling back to baseline. Nuclear images pending. Test reviewed with Dr. Kathleen. Referred By: Allen Kathleen Electronically Signed By: Rogelio Singer
--- OUTSIDE RECORDS SUMMARY | 2025-04-03 09:19 | XMS_ITS | Clinical Summary ---
Author Organization [facility] Address [address] [place] [address] Phone Care Team Providers Care Rent Control Office Manager Name Role Phone Steven Moran MD Primary [...] Description 02/14/2025 12:30 PM EDT Office Visit [facility] Department of Orthopaedic Surgery, Arthroplasty Service [address] [facility], 3rd Floor, [address] [place] [address] Fahad Whitaker MD, PhD Primary osteoarthritis of left hip (Primary Dx) 02/14/2025 Ancillary Orders [facility] [address] [place] [address] Fahad Whitaker MD, PhD 02/14/2025 Ancillary Orders [facility] [address] [place] [address] Fahad Whitaker MD, PhD 02/14/2025 Ancillary Orders [facility] [address] [place] [address] Fahad Whitaker MD, PhD 02/14/2025 Ancillary Orders [facility] [address] [place] [address] Fahad Whitaker MD, PhD from Last 3 [...] topic Medical Devices Not on file Insurance [facility] Care Teams Rent Control Office Manager Relationship Specialty Start Date End Date Steven Moran MD [address] [place] [phone] PCP - General Internal Medicine 02/05/25 Additional Source Comments The information contained in this document represents components of the legal health record. It is not the complete legal health record.[facility]
--- OUTSIDE RECORDS SUMMARY | 2025-04-03 09:20 | XMS_ITS | Patient Health Record ---
Author Organization [facility] Address [address] [place] [address] Care Team Providers Care Bench Scientist Name Role Phone Marychuy (RETIRED) Babar LANDON Primary Care Provide r Unavailable Tee Villalobos Unavailable [phone] Reason For Referral No Information Medications Medication SIG (Take, Route, Fr equency, Duration) Notes Start Date End Date Status MoviPrep 100 GM as directed Orally a s directed for 1 dose 03/22/2014 Active Aspir-81 Active Metoprolol Succinate ER Active Problems Problem Type SNOMED Code ICD Code Onset Dates Problem Status W/U Status Risk Notes Problem Colon cancer screening (376411568) Colon cancer screening (V76.51) Active confirmed Problem Long-term use of aspirin therapy (V58.66) Active confirmed Plan Of Treatment Future Test Test Name Order Date COLONOSCOPY 03/22/2014 Insurance Providers Payer Name Payer Address Payer Phone Subscriber Number Group Number Insured Name Patient Relationship to Insured Coverage Start Date Coverage End Date [facility] [address] [place] [address] [id number] STEPHEN METZ Self - patient is the insured Medical (General) History Medical History History ICD Code Denies [place],DM,Lung disease,renal disease Blind as described below HTN IVC Filter CVA's in relation to his thoracic aortic dissection as described below Surgical History Surgery Date(Month/Year) Thoracic aortic dissection a t [facility] with subsequent surgery and grafting--he had subsequent blindness,CVA's, loss of sensation and some motor on the left UE, loss of some toes on both feet 11/2009 Broken wrist
== END ==
LOC: HO.CARD 09:00
PROVIDERS: PCP Internal Medicine; Visit Provider Internal Medicine Cardiovascular Disease
DX: Z01.810 Encounter for preprocedural cardiovascular examination (principal); I71.20 Thoracic aortic aneurysm, without rupture, unspecified; M16.12 Unilateral primary osteoarthritis, left hip; Z86.73 Personal history of transient ischemic attack (TIA), and cerebral infarction without residual deficits
CPT/HCPCS: 78452; 93017; A9500; J2785

== ENCOUNTER → 2025-04-03 09:04 | Outpatient (BNV) | payer BC, SELFPAY | PROVIDERS: PCP Internal Medicine | DX: I49.1 Atrial premature depolarization (principal); I49.3 Ventricular premature depolarization | CPT/HCPCS: 78452; 93016; 93018 ==

== ENCOUNTER 2025-04-10 10:27 | Outpatient (AMB) | payer BC, SELFPAY ==
[2025-04-10 10:34] VITALS: BP 128/58; PULSE 61; BMI 24.8
--- NOTE | 2025-04-10 10:34 | MHC.OFFVIS ---
Vital Signs 04/10/25 10:34 Height 6 ft Weight 182 lb 15.739 oz BMI 24.8 BP 128/58 L Blood Pressure Location Rt brachial Position Sitting Pulse 61 Intake Visit Reasons: 1 yr s/p echo Intake Note: 1 year follow-up with ekg after echo and stress test feeling good Employment Law Specialist Required: No Travograph Operator: Travograph Operator Present Accompanied by: Spouse Allergies No Known Allergies Allergy (Verified 01/25/25 14:59) HPI Comments Details: José Miguel comes for follow-up. He is very limited in activity level due to his hip issues. Overall otherwise he has no cardiac complaints. He recently underwent a myocardial perfusion imaging in preparation for hip surgery. He was labeled to be high risk to be performed at [facility]. He was then seen surgeon at [facility] that are awaiting cardiology clearance. However they concerned about his postoperative rehabilitation due to his blindness. He says at home he is not limited activity level and can navigate around the house without having any fall issues. He has had no new cardiac symptoms. Denies any shortness of breath, orthopnea, PND. Denies any leg edema denies any exertional chest pain. No lightheadedness, syncope. Recent myocardial perfusion imaging was within normal limits suggestive of no significant obstructive coronary disease. Echocardiogram shows moderately severe aortic regurgitation with normal LV size and systolic function as well as moderately enlarged ascending aorta. [facility] Medical History Legally blind Aortic regurgitation Thoracic aortic aneurysm Surgical History History of repair of dissecting aneurysm of descending thoracic aorta Family History Father Diabetes 1.5, managed as type 1 Mother No problems noted. Social History Housing: House Patient Tobacco Use Status: Never used Tobacco e-Cigarette/Vaping Use: Never Used service: No Current occupational status: disabled Cognitive needs: No Vision needs: Yes (Legally Blind) Review of Systems Const Denies chills, Denies fatigue, Denies fever(s), Denies frequent falls, Denies weakness, Denies weight gain and Denies weight loss ENT Denies dizziness Card Denies chest pain, Denies leg edema, Denies lightheadedness, Denies palpitations, Denies dyspnea, Denies dyspnea on exertion, Denies orthopnea and Denies other (loss of consciousness) Resp Denies cough, Denies dyspnea and Denies dyspnea on exertion GI Denies hematochezia and Denies change in stool character Musc Reports abnormal gait, Denies muscle weakness, Denies numbness, Denies radiating pain into limb and Denies tingling Neuro Denies Abnormal speech present, Reports abnormal gait, Denies dizziness, Denies frequent falls, Denies numbness, Denies tingling and Denies weakness Endo Denies fatigue and Denies palpitations Physical Exam Vital Signs: Last Vital Signs Pulse 61 04/10/25 10:34 BP 128/58 L 04/10/25 10:34 BMI result Body Mass Index 24.8 Const General: cooperative, comfortable, alert and awake Nutritional Appearance: average body habitus Orientation/consciousness: patient oriented x3 Limitations: no limitations HEENT Head: Yes normocephalic and Yes atraumatic Eyes Other: Legally blind Neck Neck: Yes trachea midline, Yes supple and Yes no JVD Carotids: bounding pulses (Prominent pulsations) and no bruits Chest Chest palpation & inspection: normal inspection of the chest and other (Well-healed sternotomy scar) Resp Effort & Inspection: normal respiratory effort Auscultation: clear to auscultation bilaterally Cardio Jugular venous distension: no JVD Palpation: abnormal PMI displaced PMI Rate: regular rate Rhythm: regular rhythm Heart sounds: S1 normal heart sound present, S2 normal heart sound present and Murmur heart sound present diastolic mid, IV/ and other (All over the precordium. Positive water hammer pulse) Bruits: other (+ Duroziez sign) GI Percussion: Yes normal to percussion Skin General skin exam: no rashes or lesions noted Neuro General: patient oriented x3 and no focal motor deficits Speech: No Abnormal speech present Extrem General: Yes no clubbing, cyanosis or edema Psych Appearance: grossly normal Office Procedures EKG Details: EKG shows normal sinus rhythm normal EKG. [id number]-[id number], Complete Assessment & Plan Assessment & Plan (1) Preoperative cardiovascular examination: Code(s): Z01.810 - Encounter for preprocedural cardiovascular examination Category: Medical Plan: Preoperative cardiovascular risk stratification this elderly gentleman was limited exercise capacity to undergo hip surgery. Concerns from cardiac perspective are his aneurysm as well as aortic regurgitation. Patient currently has no symptoms of heart failure, no signs of heart failure no symptoms of angina. His myocardial perfusion imaging recently was within normal limits which reduces his ischemic risk. Although he has prior ascending aortic aneurysm surgery, I do not think he is prohibitive risk for hip surgery. His risk for perioperative cardiovascular morbidity mortality is intermediate. Patient however should have surgery performed at a center which can also potentially take care of his ascending aortic aneurysm if need be. During surgery close attention to avoiding blood pressure spikes and close hemodynamic monitoring with close blood pressure check maybe using an arterial line Mibi beneficial in his case. Would closely . Attention to rapid fluid shifts as well as replace blood volume early and aggressively. His aspirin can be withheld prior to the surgery. Continue his antihypertensive therapy in the perioperative time. (2) Aortic regurgitation: Code(s): I35.1 - Nonrheumatic aortic (valve) insufficiency Category: Medical Qualifiers: Cardiac valve disease etiology: etiology unspecified Qualified Code(s): I35.1 - Nonrheumatic aortic (valve) insufficiency Plan: Aortic regurgitation which is moderately severe without any change in symptoms or change in LV size or systolic function. At this point time will continue monitor annually by echocardiogram. Advised him to call me or report to me any new symptoms. Continue current vasodilators therapy. SBE prophylaxis as per ACC/aha guidelines. (3) Thoracic aortic aneurysm: Code(s): I71.2 - Thoracic aortic aneurysm, without rupture Category: Medical Qualifiers: Thoracic aorta location: unspecified Presence of rupture: unspecified whether ruptured Qualified Code(s): I71.20 - Thoracic aortic aneurysm, without rupture, unspecified Plan: Thoracic aortic aneurysm which is moderate in size. Will continue monitor by echocardiogram on annual basis. Continue aggressive blood pressure control. Advised to avoid sudden strenuous isometric exercise. Will follow up in the clinic in 1 year's time, sooner p.r.n.. Thank you for allowing me to partake in his care Coding Level of Care Code Est Pt Level 4 (04620) Complex EM visit Add On G2211 Diagnoses Preoperative cardiovascular examination Z01.810 Aortic valve insufficiency, etiology of cardiac valve disease unspecified I35.1 Cardiac valve disease etiology: etiology unspecified Thoracic aortic aneurysm (TAA), unspecified part, unspecified whether ruptured I71.20 Thoracic aorta location: unspecified Presence of rupture: unspecified whether ruptured CPT Codes EKG - CPT: 33049-[id number], Complete ([id number])
--- OUTSIDE RECORDS SUMMARY | 2025-04-10 11:09 | XMS_ITS | Clinical Summary ---
Author Organization [facility] Address [address] [place] [address] Phone Care Team Providers Care Chaplain Resident Name Role Phone Steven Moran MD Primary [...] Description 02/14/2025 12:30 PM EDT Office Visit [facility] Department of Orthopaedic Surgery, Arthroplasty Service [address], 3rd Floor, [address] [place] [address] Fahad Whitaker MD, PhD Primary osteoarthritis of left hip (Primary Dx) 02/14/2025 Ancillary Orders [facility] [address] [place] [address] Fahad Whiatker MD, PhD 02/14/2025 Ancillary Orders [facility] [address] [place] [address] Fahad Whitaker MD, PhD 02/14/2025 Ancillary Orders [facility] [address] [place] [address] Fahad Whitaker MD, PhD 02/14/2025 Ancillary Orders [facility] [address] [place] [address] Fahad Whitaker MD, PhD from Last 3 [...] topic Medical Devices Not on file Insurance [facility] Care Teams Chaplain Resident Relationship Specialty Start Date End Date Steven Moran MD [address] [place] [id number] PCP - General Internal Medicine 02/05/25 Additional Source Comments The information contained in this document represents components of the legal health record. It is not the complete legal health record.[facility]
--- OUTSIDE RECORDS SUMMARY | 2025-04-10 11:09 | XMS_ITS | Patient Health Record ---
Author Organization [facility] Address [address] [place] [address] Care Team Providers Care Bakery Deliverer Name Role Phone Marychuy (RETIRED) Babar LANDON Primary Care Provide r Unavailable Tee Villalobos Unavailable [phone] Reason For Referral No Information Medications Medication SIG (Take, Route, Fr equency, Duration) Notes Start Date End Date Status MoviPrep 100 GM as directed Orally a s directed for 1 dose 03/22/2014 Active Aspir-81 Active Metoprolol Succinate ER Active Problems Problem Type SNOMED Code ICD Code Onset Dates Problem Status W/U Status Risk Notes Problem Colon cancer screening (968108576) Colon cancer screening (V76.51) Active confirmed Problem Long-term use of aspirin therapy (V58.66) Active confirmed Plan Of Treatment Future Test Test Name Order Date COLONOSCOPY 03/22/2014 Insurance Providers Payer Name Payer Address Payer Phone Subscriber Number Group Number Insured Name Patient Relationship to Insured Coverage Start Date Coverage End Date [facility] [address] [phone] [id number] JANUARYSTEPHEN Self - patient is the insured Medical (General) History Medical History History ICD Code Denies [place],DM,Lung disease,renal disease Blind as described below HTN IVC Filter CVA's in relation to his thoracic aortic dissection as described below Surgical History Surgery Date(Month/Year) Thoracic aortic dissection a t [facility] with subsequent surgery and grafting--he had subsequent blindness,CVA's, loss of sensation and some motor on the left UE, loss of some toes on both feet 11/2009 Broken wrist
== END 2025-04-10 11:05 | disposition home or self-care (01) ==
LOC: HO.HCS 10:28
PROVIDERS: PCP Internal Medicine; Visit Provider Internal Medicine Cardiovascular Disease
DX: Z01.810 Encounter for preprocedural cardiovascular examination (principal); I35.1 Nonrheumatic aortic (valve) insufficiency; I71.20 Thoracic aortic aneurysm, without rupture, unspecified
CPT/HCPCS: 93010; 99214

== ENCOUNTER → 2025-04-10 10:27 | Outpatient (BNVA) | payer BC, SELFPAY | PROVIDERS: PCP Internal Medicine; Visit Provider Internal Medicine Cardiovascular Disease | DX: Z01.810 Encounter for preprocedural cardiovascular examination (principal) | CPT/HCPCS: 93005 ==

== ENCOUNTER 2025-05-16 12:46 | Outpatient (AMB) | payer BC, SELFPAY ==
[2025-05-16 13:06] VITALS: BP 106/74; PULSE 67; RESP 18; TEMP 36.2; O2SAT 95; BMI 25.3
--- NOTE | 2025-05-16 13:06 | MHC.PC.OV ---
Vital Signs 05/16/25 13:06 Height 6 ft Weight 186 lb 11.704 oz BMI 25.3 BP 106/74 Blood Pressure Location Lt brachial Position Sitting Respiration 18 Pulse 67 Pulse Source Pulse Oximeter Temp 97.1 F Temp Source Temporal Artery Scan Pulse Oximetry (%) 95 Oxygen Delivery Method Room Air Intake Visit Reasons: knee surgery surgery on 06/12 Help Desk Manager Required: No Accompanied by: Self / Same As Patient Allergies No Known Allergies Allergy (Verified 05/16/25 13:20) Medication List - Last Reconciled 05/16/25 by Maximilian Jean-Baptiste PA-C aspirin (Adult Low Dose Aspirin) 81 mg PO DAILY lisinopril 5 mg PO DAILY 90 days metoprolol succinate ER 50 mg PO DAILY 90 days Tobacco use date assessed: 05/16/25 Fall risk assessment: No Falls in past year Last assessed Fall Risk: 05/16/25 Dental Screening Dental Screen Date: 05/16/25 Did you have a dental visit in the last 12 months?: Yes Did you have a dental problem in the last 6 months where you did not have access to dental care?: No Was dental information given to patient?: Patient has dentist HPI knee surgery surgery on 06/12 HPI Details Patient is a 70-year-old male here today for a preop visit. Patient is due for a left hip total arthroplasty being done in a tertiary facility ([facility]) Dr. Whitaker-- > 06/12/[address] Perrin. Patient has a past medical history significant for hypertension and history of aortic dissection status post repair in 2009. 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 He is followed by [facility] and thoracic surgeon Dr. Thompson are mildly dilated aortic root at 4.9 mm with moderate aortic regurg. Patient has had cardiac evaluation including Lexiscan and echocardiogram which appeared to be stable. He is asymptomatic from a cardiac standpoint. He has gotten clearance from his physical education instructor . [facility] Medical History Legally blind Aortic regurgitation Thoracic aortic aneurysm Surgical History History of repair of dissecting aneurysm of descending thoracic aorta Family History Father Diabetes 1.5, managed as type 1 Mother No problems noted. Social History Housing: House Patient Tobacco Use Status: Never used Tobacco e-Cigarette/Vaping Use: Never Used service: No Current occupational status: disabled Cognitive needs: No Vision needs: Yes (Legally Blind) Questionnaire PHQ-9 Over the last 2 weeks, how often have you been bothered by any of the following problems? 1. Little interest or pleasure in doing things: not at all 2. Feeling down, depressed, or hopeless: not at all 3. Trouble falling or staying asleep, or sleeping too much: not at all 4. Feeling tired or having little energy: not at all 5. Poor appetite or overeating: not at all 6. Feeling bad about yourself - or that you are a failure or have let yourself or your family down: not at all 7. Trouble concentrating on things, such as reading the newspaper or watching television: not at all 8. Moving or speaking so slowly that other people could have noticed. Or the opposite - being so fidgety or restless that you have been moving around a lot more than usual: not at all 9. Thoughts that you would be better off or of hurting yourself in some way: not at all Total score: 0 Depression Screening Interpretation: Negative Depression Screening Done: Yes 49578 - PHQ-9 Billing: Yes Source: Developed by Drs. Tee Mckeon, Dena Watson, Panda Sheehan and colleagues, with an educational jose from [employer]. Thrive Questionnaire Date Thrive assessed: 05/16/25 I am a: Patient What is your living situation today?: I have a steady place to live Within the past 12 months, did the food you bought not last and you didn't have the money to get more?: Never true Within the past 12 months, did you worry whether your food would run out before you got money to buy more?: Never true Do you have trouble paying for medicines?: No Do you have trouble getting transportation to medical appointments?: No Do you have trouble paying your heating and electricity bill?: No Do you have trouble taking care of your child, family member or friend?: No Do you have trouble with day-to-day activities such as bathing, preparing meals, shopping, managing finances, etc.?: Yes Are you currently unemployed and looking for a job?: I choose not to answer this question Are you interested in more education?: No Please select the resources that you would like help with: None THRIVE Score: 0 AUDIT C Alcohol Use Questionnaire (AUDIT-C) 1. How often do you have a drink containing alcohol?: Monthly or less 2. How many drinks containing alcohol do you have on a typical day when you are drinking?: 1 or 2 3. How often do you have six or more drinks on one occasion?: Never Total Score: 1 MICKEY-7 AMB Questionnaire MICKEY-7 Date MICKEY - 7 assessed: 05/16/25 Feeling nervous, anxious, or on edge: 1 = Several days Not being able to stop or control worryin = Several days Worrying too much about different things: 1 = Several days Trouble relaxin = Several days Being so restless that it is hard to sit still: 0 = Not at all Becoming easily annoyed or irritable: 0 = Not at all Feeling afraid as if something awful might happen: 0 = Not at all Total MICKEY-7 score (0-4 normal; 5-9 mild; 10-14 moderate; 15-21 severe): 4 Source: Developed by Drs. Tee Mckeon, Dena Watson, Panda Sheehan and colleagues, with an educational jose from [employer]. MICKEY-7 Assessment Billing MICKEY-7 Assessment Tool: MICKEY-7 Assessment 23703 Review of Systems Const Denies headache(s) Eyes Denies loss of vision ENT Denies vertigo, Denies dizziness, Denies headache(s) and Denies sore throat Card Denies chest pain, Denies leg edema and Denies lightheadedness Resp Denies cough, Denies hemoptysis and Denies wheezing GI Denies abdominal pain, Denies melena, Denies constipation, Denies diarrhea and Denies vomiting Denies dysuria, Denies urinary frequency and Denies urinary urgency Musc Denies arthralgias, Denies joint swelling, Denies numbness and Denies tingling Neuro Denies Abnormal speech present, Denies behavioral changes, Denies vertigo, Denies dizziness, Denies headache(s), Denies loss of vision, Denies memory loss, Denies numbness and Denies tingling Psych Denies anxiety, Denies behavioral changes, Denies depression, Denies memory loss and Denies panic attacks Otto/Lymph Denies easy bleeding and Denies easy bruising Aller/Immun Denies wheezing Physical exam (Primary Care) Vital Signs: Last Vital Signs Temp 97.1 F 05/16/25 13:06 Pulse 67 05/16/25 13:06 Resp 18 05/16/25 13:06 BP 106/74 05/16/25 13:06 Pulse Ox 95 05/16/25 13:06 Oxygen Delivery Method Room Air 05/16/25 13:06 BMI result Body Mass Index 25.3 Tobacco/Smoking Status: Tobacco use Status Tobacco use date assessed 05/16/25 05/16/25 13:08 Patient Tobacco Use Status Never used Tobacco 05/16/25 13:08 e-Cigarette/Vaping Use Never Used 05/16/25 13:08 PHQ-9: PHQ-9 Score PHQ-9: Total score 0 05/16/25 13:21 Depression Screening Interpretation: Negative Thrive Assessment: Date of Thrive Assessment Date Thrive assessed 05/16/25 05/16/25 13:08 Const General: healthy appearing, no acute distress, alert and awake Nutritional Appearance: well nourished Orientation/consciousness: oriented to person, oriented to place and oriented to time HENMT Ears: TM's normal bilaterally General nose exam: Normal nasal mucous membranes and turbinates present Eyes Conjunctivae: conjunctivae normal Sclerae: sclerae normal Pupils: Equal, round and reactive pupils present Neck Neck: Yes no lymphadenopathy and Yes no JVD Thyroid: Thyroid normal Carotids: no bruits Resp Effort & Inspection: normal respiratory effort and not tachypneic Auscultation: no crackles, no rales, no rhonchi and no wheezes Cardio Rate: regular rate Rhythm: regular rhythm Heart sounds: no murmurs and normal S1 and S2 GI Palpation (GI): Soft to palpation, nontender, no hepatomegaly and no splenomegaly Auscultation: normal bowel sounds Skin General skin exam: no rashes or lesions noted and dry skin Neuro General: oriented to person, oriented to place and oriented to time Cranial nerves: Yes Equal, round and reactive pupils present Speech: No Abnormal speech present Gait exam (Neuro): Normal gait present Motor exam (neuro): no tremor noted Extrem Right upper extremity: full ROM Left upper extremity: full ROM Right lower extremity: full ROM; no edema Left lower extremity: full ROM; no edema Psych Mental Status: mental status grossly normal Speech and movement: Normal speech and movement present Affect: normal affect Attitude: cooperative Thought process: Normal thought process present Coding Level of Care Code Est Pt Level 4 (34221) Diagnoses Pre-op evaluation Z01.818 Primary osteoarthritis of left hip M16.12 Osteoarthritis type: primary Aortic valve insufficiency, etiology of cardiac valve disease unspecified I35.1 Cardiac valve disease etiology: etiology unspecified Thoracic aortic aneurysm (TAA), unspecified part, unspecified whether ruptured I71.20 Presence of rupture: unspecified whether ruptured Thoracic aorta location: unspecified History of embolic stroke Z86.73 Additional Codes MICKEY-7 Assessment Billing - MICKEY-7 Assessment Tool: MICKEY-7 Assessment 19660 ([id number]) PHQ-9 - 05526 - PHQ-9 Billing: Yes ([id number]) Assessment & Plan Assessment & Plan (1) Pre-op evaluation: Code(s): Z01.818 - Encounter for other preprocedural examination Category: Medical Plan: Patient is an intermediate CV risk due to his cardiac history. He has been stable without any cardiac complaints. He has been cleared by his local physical education instructor. Patient's most recent labs and vitals are stable. Again will have the association of the blind coming to do home eval and teaching about use of a walker and cane and recovering from a total hip arthroplasty being blind. Patient medically clear for needed left hip arthroplasty (2) Osteoarthritis of left hip: Code(s): M16.12 - Unilateral primary osteoarthritis, left hip Category: Medical Qualifiers: Osteoarthritis type: primary Qualified Code(s): M16.12 - Unilateral primary osteoarthritis, left hip Plan: As above Due for left hip arthroplasty at [facility] (3) Aortic regurgitation: Code(s): I35.1 - Nonrheumatic aortic (valve) insufficiency Category: Medical Qualifiers: Cardiac valve disease etiology: etiology unspecified Qualified Code(s): I35.1 - Nonrheumatic aortic (valve) insufficiency Plan: Recent echocardiogram showing--> - The left ventricular systolic function is normal. The visually estimated ejection fraction is between 60-65%. - There is moderate to severe aortic valve regurgitation. - There is mild dilatation of the sinuses of Valsalva measuring 4.10 cm and moderate dilatation of the ascending aorta measuring 4.90 cm. - Ascending aorta not well visualized. Consider CTA for further evaluation. He has no overt signs of heart failure. (4) Thoracic aortic aneurysm: Code(s): I71.2 - Thoracic aortic aneurysm, without rupture Category: Medical Qualifiers: Presence of rupture: unspecified whether ruptured Thoracic aorta location: unspecified Qualified Code(s): I71.20 - Thoracic aortic aneurysm, without rupture, unspecified Plan: Patient again followed by Cardiology and has seen thoracic surgery in the past to aortic dissection. (5) History of embolic stroke: Code(s): Z86.73 - Personal history of transient ischemic attack (TIA), and cerebral infarction without residual deficits Category: Medical Plan: Patient legally blind secondary to embolic stroke after his aortic dissection surgery. Family does have Blind association coming to the home to work with José Miguel on manipulating a walker and cane throughout his house. He has been living in his home for 40 years in his very well aware of the inside of his home. Has not had any falls in his home. Orders: Orders Complete Blood Count no Diff 05/16/25 Z01.818 - Encounter for other preprocedural examination Comprehensive Met. Panel 05/16/25 Z01.818 - Encounter for other preprocedural examination Hemoglobin A1c 05/16/25 Z01.818 - Encounter for other preprocedural examination ECG 12 lead EKG 05/16/25 Z01.810 - Encounter for preprocedural cardiovascular examination Prothrombin Time INR 05/16/25 Z01.818 - Encounter for other preprocedural examination Medications: New cane As directed 1 ea 0RF M16.12 - Unilateral primary osteoarthritis, left hip [A raised toilet seat] As directed 1 ea 0RF M16.12 - Unilateral primary osteoarthritis, left hip
--- OUTSIDE RECORDS SUMMARY | 2025-05-16 15:43 | XMS_ITS | Clinical Summary ---
Author Organization [facility] Address [address] [place] [address] Phone Care Team Providers Care [place] Hand Name Role Phone Steven Moran MD Primary [...] Encounters Date Type Department Care Team Description 04/30/2025 Telephone [facility] Department of Orthopaedic Surgery, Arthroplasty Service [address], [address], [address] [place] [address] Fahad Whitaker MD, PhD 04/25/2025 12:15 PM EDT Office Visit [facility] Department of Orthopaedic Surgery, Arthroplasty Service [address], [address], [address] [place] [address] Fahad Whitaker MD, PhD Primary osteoarthritis of left hip (Primary Dx) 04/25/2025 11:03 AM EDT - 04/25/2025 11:59 PM EDT Hospital Encounter [facility] Imaging - XrRik ryderkey [address] [facility], 3rd [place] [address] Fahad Whitaker MD, PhD Discharge Disposition: Home or Self Care 04/25/2025 Orders Only [facility] Orthopaedic Oncology [address], [address], [address] [place] [address] Nelson Powell Primary osteoarthritis of left hip 04/25/2025 Orders Only [facility] Department of Orthopaedic Surgery, Arthroplasty Service [address], [address], [address] [place] [address] Abraham Gallagher MA Primary osteoarthritis of left hip (Primary Dx) 04/25/2025 Orders Only [facility] Department of Orthopaedic Surgery, Arthroplasty Service [address], [address], [address] [place] [phone] Abraham Gallagher MA Hip pain (Primary Dx) 04/25/2025 Orders Only [facility] Orthopaedic Oncology [address], [address], [address] [place] [address] Nelson Powell Primary osteoarthritis of left hip (Primary Dx) 02/14/2025 12:30 PM EDT Office Visit [facility] Department of Orthopaedic Surgery, Arthroplasty Service [address], [address], [address] [place] [phone] Fahad Whitaker MD, PhD Primary osteoarthritis of left hip (Primary Dx) 02/14/2025 Ancillary Orders [facility] [address] [place] [address] Fahad Whitaker MD, PhD 02/14/2025 Ancillary Orders [facility] [address] [place] [address] Fahad Whitaker MD, PhD 02/14/2025 Ancillary Orders [facility] [address] [place] [address] Fahad Whitaker MD, PhD 02/14/2025 Ancillary Orders [facility] [address] [place] [address] Fahad Whitaker MD, PhD from Last 3 [...] 02/14/2025 1:17 PM EDT Plan of Treatment Upcoming Encounters Date Type Department Care Team (Latest Contact Info) Description 05/31/2025 9:45 AM EDT Pre-Admission Testing [facility] Pre-Procedure Evaluation Department Please [place] [phone] Fahad Whitaker MD, PhD [address] [place] [phone] [email or web address] 05/31/2025 10:30 AM EDT Nurse Only [facility] CASE MANAGEMENT [address] [place] [address] Fahad Whitaker MD, PhD [address] [place] [address] [email or web address] RN [address] [place] [phone] [email or web address] 06/12/2025 Procedure Pass [facility] PERIOPERATIVE DEPT [address] [place] [phone] 06/12/2025 9:45 AM EDT Hospital Encounter [facility] PERIOPERATIVE DEPT [address] [place] [phone] Fahad Whitaker MD, PhD [address] [place] [phone] [email or web address] 06/12/2025 9:45 AM EDT - 06/12/2025 11:45 AM EDT Surgery [facility] PERIOPERATIVE DEPT [address] [place] [phone] Fahad Whitaker MD, PhD [address] [place] [phone] [email or web address] ARTHROPLASTY TOTAL HIP 07/20/2025 8:30 AM EST Office Visit [facility] Department of Orthopaedic Surgery, Arthroplasty Service [address] [place] [address], [address] Floor, [address] [place] [address] Satinder Herbert PA-C [address] [place] [address] [email or web address] 09/19/2025 9:30 AM EST Office Visit [facility] Department of Orthopaedic Surgery, Arthroplasty Service [address] [place] [address], [address]rd Floor, [address] [place] [address] Fahad Whitaker MD, PhD [address] [place] [phone] [email or web address] Scheduled Procedures Name Priority Associated Diagnoses Date/Ti me ARTHROPLASTY TOTAL HIP Primary osteoarthritis of left hip 06/12/2025 9:45 AM EDT Health Maintenance Due Date Last Done Comments [...] - Risk 60-74 years 1-dose series) 2017 INFLUENZA VACCINE (#1) 2025 COVID-19 VACCINE ( - 2023-2 5 season) 2025 HEPATITIS A VACCINES Aged Out No long [...] this topic Medical Devices Not on file Procedures Procedure Name Priority Date/Time Associated Diagnosis Comments MRSA/MSSA PRE-OP PCR Routine 04/25/2025 1:11 PM EDT Primary osteoarthritis of left hip XR HIP 3+ VW LEFT PLUS PELVIS Routine 04/25/2025 12:00 PM EDT Primary osteoarthritis of left hip from Last 3 Months Results * Staphylococcus aureus (MRSA/MSSA) PCR, Preoperative (04/25/2025 1:11 PM EDT) MRSA PCR SCREEN NEGATIVE FOR MRSA (Methicillin Resistant S.aureus) NEGATIVE FOR MRSA (Methicillin Resistant S.aureus) [facility] MSSA PCR SCREEN NEGATIVE FOR MSSA (Methicillin Susceptible S.aureus) NEGATIVE FOR MSSA (Methicillin Susceptible S.aureus) [facility] Comment:This test was conduc xochilt as part of Pre-Operative Screening for Staphylococcus aureus. Please direct any questions regarding this result to the Ordering Provider. Nasal (Nasal) 04/25/2025 1:1 1 PM EDT 04/25/2025 2:59 PM EDT Laurie Eliane ARMSTRONG NON CULTURE MICROBIOLOGY Marina l Result [address] [address] * XR HIP 3+ VW LEFT PLUS PELVIS (04/25/2025 12:00 PM EDT) Anatomical Region Laterality Modality Hip, Pelvis Computed Radiogr aphy 04/25/2025 3:28 PM EDT Impressions 04/25/2025 4:49 PM EDT Bilateral severe hip osteoarthritis, greater on the left. ATTESTATION: I, Dr. Sonido Guillen as teaching physician, have reviewed the images for this case and if necessary edited the report originally created by Dr. Tee Breaux. Narrative 04/25/2025 4:49 PM EDT XR HIP 3+ VW LEFT PLUS PELVIS Referring clinician's provided indication for this examination in Epic: S/P Joint Replacement COMPARISON: XR LOWER EXTREMITY OUTSIDE WITH INTERPRETATION OR CONSULT FINDINGS: Pelvis: Lumbosacral and sacroiliac degenerative changes. No displaced pelvic fracture. Frontal evaluation of the right hip demonstrates severe osteoarthritis. Vascular calcifications. Left hip: Similar extensive osseous remodeling and joint space narrowing of the left hip. No definite fracture. Trochanteric enthesopathy. Similar osteochondral body in the inferior joint recess. Procedure Note Sonido Kramer MD - 04/25/2025 XR HIP 3+ VW LEFT PLUS PELVIS Referring clinician's provided indication for this examination in Epic:S/P Joint Replacement COMPARISON: XR LOWER EXTREMITY OUTSIDE WITH INTERPRETATION OR [id number] FINDINGS: Pelvis: Lumbosacral and sacroiliac degenerative changes. No displacedpelvic fracture. Frontal evaluation of the right hip demonstrates severeosteoarthritis. Vascular calcifications. Left hip: Similar extensive osseous remodeling and joint space narrowingof the left hip. No definite fracture. Trochanteric enthesopathy. Similarosteochondral body in the inferior joint recess. IMPRESSION: Bilateral severe hip osteoarthritis, greater on the left. ATTESTATION: I, Dr. Sonido Guillen as teaching physician, have reviewedthe images for this case and if necessary edited the report originallycreated by Dr. Tee Breaux. Fahad Whitaker MD, PhD IMG XR PELVIS Final Res ult from Last 3 Months Insurance [facility] Care Teams [facility] Hand Relationship Specialty Start Date End Date Steven Moran MD [address] [place] [phone] PCP - General Internal Medicine 02/05/25 Additional Source Comments The information contained in this document represents components of the legal health record. It is not the complete legal health record.[facility]
--- OUTSIDE RECORDS SUMMARY | 2025-05-16 15:43 | XMS_ITS | Encounter Summary ---
Author Organization [facility] Address [address] [place] [address] Phone Care Team Providers Care Digital Project Manager Name Role Phone Steven Moran MD Primary Care Provid er Encounter Details Date Type Department Care Team (Late st Contact Info) Description 04/25/2025 Orders Only [facility] Orthopaedic Oncology [address] [facility], 3rd Floor, [address] [place] [address] Nelson Powell [address] [place] [address] jose [email or web address] Primary osteoarthritis of left hip Social History Tobacco Use Types Packs/Day Years [...] on file Sexual Orientation Not on file documented as of this encounter Plan of Treatment Upcoming Encounters Date Type Department Care Team (Latest Contact Info) Description 05/31/2025 9:45 AM EDT Pre-Admission Testing [facility] Pre-Procedure Evaluation Department Please See Appointment [place] [phone] Fahad Whitaker MD, PhD [address] [place] [address] [email or web address] 05/31/2025 10:30 AM EDT Nurse Only [facility] CASE MANAGEMENT [address] [place] [address] Fahad Whitaker MD, PhD [address] [place] [phone] [email or web address] Suze Mccoy RN [address] [place] [phone] [email or web address] 06/12/2025 Procedure Pass [facility] PERIOPERATIVE DEPT [address] [place] [phone] 06/12/2025 9:45 AM EDT Hospital Encounter [facility] PERIOPERATIVE DEPT [address] [place] [address] [phone] Fahad Whitaker MD, PhD [address] [place] [address] [email or web address] 06/12/2025 9:45 AM EDT - 06/12/2025 11:45 AM EDT Surgery [facility] PERIOPERATIVE DEPT [address] [place] [address] [phone] Fahad Whitaker MD, PhD [address] [place] [phone] [email or web address] ARTHROPLASTY TOTAL HIP 07/20/2025 8:30 AM EST Office Visit [facility] Department of Orthopaedic Surgery, Arthroplasty Service [address] [place] [address], 3rd Floor, [address] [place] [address] Satinder Herbert PA-C [address] [facility] [address] [place] [address] [email or web address] 09/19/2025 9:30 AM EST Office Visit [facility] Department of Orthopaedic Surgery, Arthroplasty Service [address] [place] [address], 3rd Floor, [address] [place] [address] Fahad Whitaker MD, PhD [address] [place] [address] [address] [place] [address] [email or web address] Scheduled Procedures Name Priority Associated Diagnoses Date/Ti me ARTHROPLASTY TOTAL HIP Primary osteoarthritis of left hip 06/12/2025 9:45 AM EDT documented as of this encounter Procedures Procedure Name Priority Date/Time Associated Diagnosis Comments MRSA/MSSA PRE-OP PCR Routine 04/25/2025 1:11 PM EDT Primary osteoarthritis of left hip documented in this encounter Results * Staphylococcus aureus (MRSA/MSSA) PCR, Preoperative (04/25/2025 1:11 PM EDT) MRSA PCR SCREEN NEGATIVE FOR MRSA (Methicillin Resistant S.aureus) NEGATIVE FOR MRSA (Methicillin Resistant S.aureus) [facility] MSSA PCR SCREEN NEGATIVE FOR MSSA (Methicillin Susceptible S.aureus) NEGATIVE FOR MSSA (Methicillin Susceptible S.aureus) [facility] Comment:This test was conduc xochilt as part of Pre-Operative Screening for Staphylococcus aureus. Please direct any questions regarding this result to the Ordering Provider. Nasal (Nasal) 04/25/2025 1:1 1 PM EDT 04/25/2025 2:59 PM EDT us Laurie Del Rio PA-C NON CULTURE MICROBIOLOGY Marina l Result [address] [address] documented in this encounter Visit Diagnoses Diagnosis Primary osteoarthritis of left hip Primary osteoarthritis of left hip documented in this encounter Care Teams Digital Project Manager Relationship Specialty Start Date End Date Steven Moran MD [address] [place] [address] PCP - General Internal Medicine 02/05/25 documented as of this encounter Additional Source Comments The information contained in this document represents components of the legal health record. It is not the complete legal health record.[facility]
--- OUTSIDE RECORDS SUMMARY | 2025-05-16 15:43 | XMS_ITS | Encounter Summary ---
Author Organization [facility] Address [address] [place] [address] Phone Care Team Providers Care Internet Marketing Specialist Name Role Phone Steven Moran MD Primary Care Provid er Encounter Details Date Type Department Care Team (Late st Contact Info) Description 04/30/2025 Telephone [facility] Department of Orthopaedic Surgery, Arthroplasty Service [address] [facility], 3rd Floor, [address] [place] [address] Fahad Whitaker MD, PhD [address] [facility] [address] [place] [address] [email or web address] Social History Tobacco Use Types Packs/Day Years [...] on file documented as of this encounter Progress Notes * Cesia Jaquez PA-C - 04/30/2025 3:27 PM EDT Discussed pain management leading up to surgery- ok to take tylenol 1000 mg TID alongside aspirin. documented in this encounter Plan of Treatment Upcoming Encounters Date Type Department Care Team (Latest Contact Info) Description 05/31/2025 9:45 AM EDT Pre-Admission Testing [facility] Pre-Procedure Evaluation Department Please [place] [phone] Fahad Whitaker MD, PhD [address] [place] [phone] [email or web address] 05/31/2025 10:30 AM EDT Nurse Only [facility] CASE MANAGEMENT [address] [place] [address] Fahad Whitaker MD, PhD [address] [place] [address] [email or web address] Suze Mccoy RN [address] [place] [phone] [email or web address] 06/12/2025 Procedure Pass [facility] PERIOPERATIVE DEPT [address] [place] [phone] 06/12/2025 9:45 AM EDT Hospital Encounter [facility] PERIOPERATIVE DEPT [address] [place] [address] [phone] Fahad Whitaker MD, PhD [address] [place] [phone] [email or web address] 06/12/2025 9:45 AM EDT - 06/12/2025 11:45 AM EDT Surgery [facility] PERIOPERATIVE DEPT [address] [place] [phone] Fahad Whitaker MD, PhD [address] [facility] [address] [place] [address] [email or web address] ARTHROPLASTY TOTAL HIP 07/20/2025 8:30 AM EST Office Visit [facility] Department of Orthopaedic Surgery, Arthroplasty Service [address] [facility], 3rd Floor, [address] [place] [address] Satinder Herbetr PA-C [address] [facility] [place] [address] [email or web address] 09/19/2025 9:30 AM EST Office Visit [facility] Department of Orthopaedic Surgery, Arthroplasty Service [address] [facility], 3rd Floor, [address] [place] [address] Fahad Whitaker MD, PhD [address] [place] [address] [address] [place] [address] [email or web address] Scheduled Procedures Name Priority Associated Diagnoses Date/Ti me ARTHROPLASTY TOTAL HIP Primary osteoarthritis of left hip 06/12/2025 9:45 AM EDT documented as of this encounter Visit Diagnoses Not on filedocumented in this encounter Care Teams Internet Marketing Specialist Relationship Specialty Start Date End Date Steven Moran MD [address] [place] [phone] PCP - General Internal Medicine 02/05/25 documented as of this encounter Additional Source Comments The information contained in this document represents components of the legal health record. It is not the complete legal health record.[facility]
--- OUTSIDE RECORDS SUMMARY | 2025-05-16 15:43 | XMS_ITS | Patient Health Record ---
Author Organization [facility] Address [address] [place] [address] Care Team Providers Care Smoking Tobacco Packer Hand Name Role Phone Marychuy (RETIRED) Babar LANDON Primary Care Provide r Unavailable Tee Villalobos Unavailable [phone] Reason For Referral No Information Medications Medication SIG (Take, Route, Fr equency, Duration) Notes Start Date End Date Status MoviPrep 100 GM as directed Orally a s directed for 1 dose 03/22/2014 Active Aspir-81 Active Metoprolol Succinate ER Active Problems Problem Type SNOMED Code ICD Code Onset Dates Problem Status W/U Status Risk Notes Problem Colon cancer screening (569509320) Colon cancer screening (V76.51) Active confirmed Problem Long-term use of aspirin therapy (V58.66) Active confirmed Plan Of Treatment Future Test Test Name Order Date COLONOSCOPY 03/22/2014 Insurance Providers Payer Name Payer Address Payer Phone Subscriber Number Group Number Insured Name Patient Relationship to Insured Coverage Start Date Coverage End Date [facility] [employer] [address] [place] [address] [id number] JANUARYSTEPHEN Self - patient is the insured Medical (General) History Medical History History ICD Code Denies [place],DM,Lung disease,renal disease Blind as described below HTN IVC Filter CVA'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
== END 2025-05-16 15:28 | disposition home or self-care (01) ==
LOC: HO.HMCH 12:47
PROVIDERS: PCP Internal Medicine; Visit Provider Physician Assistant
DX: Z01.818 Encounter for other preprocedural examination (principal); M16.12 Unilateral primary osteoarthritis, left hip; I35.1 Nonrheumatic aortic (valve) insufficiency; I71.20 Thoracic aortic aneurysm, without rupture, unspecified; Z86.73 Personal history of transient ischemic attack (TIA), and cerebral infarction without residual deficits

== ENCOUNTER → 2025-05-16 12:46 | Outpatient (REF) | payer BC, SELFPAY ==
--- NOTE | 2025-05-16 13:57 | ECG_ITS ---
Test Reason : pre op pt sitting in wheel chair. Blood Pressure : */* mmHG Vent. Rate : 65 BPM Atrial Rate : 65 BPM P-R Int : 186 ms QRS Dur : 96 ms QT Int : 418 ms P-R-T Axes : 74 79 73 degrees QTcB Int : 434 ms Normal sinus rhythm Normal ECG When compared with ECG of 10-Nov-2009 10:14, MANUAL COMPARISON REQUIRED PREVIOUS ECG IS INCOMPATIBLE Referred By: Maximilian Jean-Baptiste Electronically Signed By: LEVON JAMESON MD
[2025-05-16 14:57] LABS: Hematocrit 39.9 % (42.0-52.0); Hemoglobin 14.0 g/dl (14.0-18.0); Mean Corpuscular HGB Conc 35.1 g/dl (31.0-36.0); Mean Corpuscular Hemoglobin 30.2 pg (27.0-33.0); Mean Corpuscular Volume 86.0 fL (80.0-98.0); NRBC Abs Auto 0.000 X10*3/uL (0.0-0.012); NRBC Pct Auto 0.0 /100WBC (0.0-0.2); Platelet Count 178 X10*3/uL (160-400); Red Blood Count 4.64 X10*6/uL (4.60-5.80); White Blood Count 5.8 X10*3/uL (4.8-10.8)
[2025-05-16 15:01] LABS: INTERNATIONAL NORM RATIO 1.1 (0.9-1.1); Prothrombin Time 12.3 SEC (10.9-12.4)
[2025-05-16 15:05] LABS: Hemoglobin A1C 123.9299 umol/L
[2025-05-16 15:33] LABS: Alanine Aminotransferase 102 U/L (0-40); Albumin Level 4.2 g/dL (3.5-5.0); Alkaline Phosphatase 44 U/L (39-117); Anion Gap 12 (12-20); Aspartate Amino Transferase 67 U/L (5-37); Blood Urea Nitrogen 20 mg/dL (9-16); Calcium 9.5 mg/dL (8.4-10.2); Carbon Dioxide 29 mmol/L (22-29); Chloride 108 mmol/L (96-108); Estimated Glomerular Filt Rate > 60; Potassium 5.0 mmol/L (3.3-5.1); Sodium 144 mmol/L (135-145); Total Protein 6.7 g/dL (6.5-8.0)
== END ==
LOC: HO.CARD 12:46
PROVIDERS: PCP Internal Medicine; Visit Provider Physician Assistant
DX: Z01.818 Encounter for other preprocedural examination (principal); Z01.810 Encounter for preprocedural cardiovascular examination; M16.12 Unilateral primary osteoarthritis, left hip; I35.1 Nonrheumatic aortic (valve) insufficiency; I71.20 Thoracic aortic aneurysm, without rupture, unspecified; Z86.73 Personal history of transient ischemic attack (TIA), and cerebral infarction without residual deficits
CPT/HCPCS: 36415; 80053; 83036; 85027; 85610; 93005; 96127

== ENCOUNTER → 2025-05-16 13:57 | Outpatient (BNV) | payer BC, SELFPAY | PROVIDERS: PCP Internal Medicine; Visit Provider Internal Medicine Cardiovascular Disease | DX: Z01.810 Encounter for preprocedural cardiovascular examination (principal) | CPT/HCPCS: 93010 ==

== ENCOUNTER 2025-05-31 11:37 | Outpatient (REF) | payer BC, SELFPAY ==
--- OUTSIDE RECORDS SUMMARY | 2025-05-31 09:45 | XMS_ITS | Encounter Summary ---
Author Organization [facility] Address [address] [place] [address] Phone Care Team Providers Care Shanker Out Name Role Phone Steven Moran MD Primary Care Provid er Encounter Details Date Type Department Care Team (Late st Contact Info) Description 05/31/2025 9:45 AM EDT Pre-Admission Testing [facility] Pre-Procedure Evaluation Department Please [place] [address] Fahad Whitaker MD, PhD [address] [place] [address] [address] [email or web address] Anesthesia Record Procedure Summary Procedure Name Responsible Anesthesiologist Anesthesia Start Time Anesthesia Stop Time ARTHROPLASTY TOTAL HIP (Left) Events No events on file. Meds * Agents No agents on file. * Blood No blood administrations on file. Lines, Drains, and Airways No LDAs on file. documented in this encounter Social History Tobacco Use Types Packs/Day Years Used Date Smoking Tobacco: Never Smokeless Tobacco: Never Alcohol Use Standard Drinks/Week Comments Never 0 (1 standard drink = 0.6 oz pur e alcohol) Education Answer Date Recorded Are you interested [...] on file documented as of this encounter Last Filed Vital Signs Vital Sign Reading Time Taken Comments Blood Pressure - - Pulse - - Temperature - - Respiratory Rate - - Oxygen Saturation - - Inhaled Oxygen Concentration - - Weight 84.4 kg (186 lb) 05/31/2025 9:46 AM EDT Height 180.3 cm (5' 11 ) 05/31/2025 9:46 AM EDT Body Mass Index 25.94 05/31/2025 9:46 AM EDT documented in this encounter Progress Notes * Diana Ferreira RN - 05/31/2025 9:45 AM EDT Before Surgery Diet Unless your surgeon's office gives you special diet instructions, please follow these: 10pm the night before surgery Stop eating solid foods, dairy products, gum, mints, and candies Continue drinking clear liquids Clear liquids include water, Gatorade, apple juice, black coffee, plain tea, or a clear drink from your surgery clinic Do NOT add anything to clear liquids If you do tube feeding, stop at this time 2 hours before hospital check-in time Stop drinking clear liquids Medications Unless your surgeon's office gives you special medication instructions, please follow the above instructions and what is listed here: At least 1 week before surgery: stop taking all vitamins and supplements. If needed, on the day of surgery you can take Acetaminophen or Tylenol Day of Surgery Getting Ready Bring a list of your medications and the last time you took each one Bring your glasses and hearing aids Bring a picture ID Bring your inhalers Bring your CPAP machine, mask, and hoses Wear comfortable clothes Do not bring law or valuables Do not wear jewelry or piercings Do not apply lotion, cream, powder, makeup, or deodorant after your last shower or bath Hospital Check-in Unless your surgeon gives you different instructions, go to: [facility] main [place] in [address], 3rd floor Center for Perioperative Care (ENERGY AND CONSERVATION TECHNICIAN) For more information about preparing for your surgery go to the [facility] Center for Perioperative Care website: www.massgeneral.org/surgery/perioperative-care/kygfwirgn-cxs-wkoflfm Or search for the website with the phrase: [facility] preparing for surgery. documented in this encounter Plan of Treatment Upcoming Encounters Date Type Department Care Team (Latest Contact Info) Description 06/12/2025 Procedure Pass [facility] PERIOPERATIVE DEPT [address] [place] [phone] 06/12/2025 11:45 AM EDT Hospital Encounter [facility] PERIOPERATIVE DEPT [address] [place] [phone] Fahad Whitaker MD, PhD [address] [place] [phone] [email or web address] 06/12/2025 11:45 AM EDT Anesthesia Event [facility] PERIOPERATIVE DEPT [address] [place] [address] [phone] Diana Ferreira RN [address] [place] [phone] [email or web address] 06/12/2025 11:45 AM EDT - 06/12/2025 1:45 PM EDT Surgery [facility] PERIOPERATIVE DEPT [address] [place] [address] [phone] Fahad Whitaker MD, PhD [address] [place] [address] [email or web address]@[email or web address] ARTHROPLASTY TOTAL HIP 07/20/2025 8:30 AM EST Office Visit [facility] Department of Orthopaedic Surgery, Arthroplasty Service [address] [place] [address], 3rd Floor, [address] [place] [address] Satinder Herbert PA-C [address] [place] [address] [email or web address] 09/19/2025 9:30 AM EST Office Visit [facility] Department of Orthopaedic Surgery, Arthroplasty Service [facility], 3rd Floor, [address] [place] [address] Fahad Whitaker MD, PhD [address] [facility] [address] [place] [address] [email or web address] Scheduled Procedures Name Priority Associated Diagnoses Date/Ti me ARTHROPLASTY TOTAL HIP Primary osteoarthritis of left hip 06/12/2025 11:45 AM EDT documented as of this encounter Visit Diagnoses Not on filedocumented in this encounter Care Teams Shanker Out Relationship Specialty Start Date End Date Steven Moran MD [address] [place] [address] PCP - General Internal Medicine 02/05/25 documented as of this encounter Additional Source Comments The information contained in this document represents components of the legal health record. It is not the complete legal health record.[facility]
[2025-05-31 12:48] LABS: Alanine Aminotransferase 24 U/L (0-40); Albumin Level 4.2 g/dL (3.5-5.0); Alkaline Phosphatase 48 U/L (39-117); Aspartate Amino Transferase 21 U/L (5-37); Total Protein 6.5 g/dL (6.5-8.0)
--- OUTSIDE RECORDS SUMMARY | 2025-05-31 16:30 | XMS_ITS | Encounter Summary ---
Author Organization [facility] Address [address] [place] [address] Phone Care Team Providers Care Edi Specialist Name Role Phone Steven Moran MD Primary Care Provid er Reason for Referral * Home Health Care - New Request Specialty Diagnoses / Procedures Referred By Lynsey donato Referred To Contact Home Health Services Fahad Whitaker MD, PhD [address] [place] [address] [address] Phone: tel: fax: mailto:[email or web address] [address] [place], [place] Phone: tel: fax: Referral ID Status Reason Start Date Expiration Date V isits Requested Visits Authorized [id number] New Request 05/31/2025 05/31/2026 1 1 Encounter Details Date Type Department Care Team (Late st Contact Info) Description 05/31/2025 Orders Only [facility] [address], [place] [phone] Andrea Ngo MD [facility] [place] [address] Social History Tobacco Use Types Packs/Day Years [...] (Latest Contact Info) Description 06/12/2025 Procedure Pass [facility] PERIOPERATIVE DEPT [address] [place] [phone] 06/12/2025 11:45 AM EDT Hospital Encounter [facility] PERIOPERATIVE DEPT [address] [place] [phone] Fahad Whitaker MD, PhD [address] [place] [phone] TYLER@[facility] 06/12/2025 11:45 AM EDT Anesthesia Event [facility] PERIOPERATIVE DEPT [address] [place] [phone] Diana Ferreira RN [address] [place] [phone] [email or web address] 06/12/2025 11:45 AM EDT - 06/12/2025 1:45 PM EDT Surgery [facility] PERIOPERATIVE DEPT [address] [place] [phone] Fahad Whitaker MD, PhD [address] [place] [address] [email or web address]@[facility] ARTHROPLASTY TOTAL HIP 07/20/2025 8:30 AM EST Office Visit [facility] Department of Orthopaedic Surgery, Arthroplasty Service [address] [facility], 3rd Floor, [address] [place] [address] Satinder Herbert PA-C [address] [facility] [place] [address] [email or web address] 09/19/2025 9:30 AM EST Office Visit [facility] Department of Orthopaedic Surgery, Arthroplasty Service [facility], 3rd Floor, [address] [place] [address] Fahad Whitaker MD, PhD [address] [facility] [address] [place] [address] [email or web address] Scheduled Procedures Name Priority Associated Diagnoses Date/Ti me ARTHROPLASTY TOTAL HIP Primary osteoarthritis of left hip 06/12/2025 11:45 AM EDT Scheduled Referrals Name Type Priority Associated Diagnoses Orde r Schedule 4NEXT REFERRAL TO HOME HEALTH Outpatient Referral Routine Ordered: 05/31/2025 documented as of this encounter Visit Diagnoses Not on filedocumented in this encounter Care Teams Edi Specialist Relationship Specialty Start Date End Date Steven Moran MD [address] [place] [phone] PCP - General Internal Medicine 02/05/25 documented as of this encounter Additional Source Comments The information contained in this document represents components of the legal health record. It is not the complete legal health record.[facility]"
--- OUTSIDE RECORDS SUMMARY | 2025-05-31 16:30 | XMS_ITS | Clinical Summary ---
Author Organization [facility] Address [address] [place] [address] Phone Care Team Providers Care Biology Teacher Name Role Phone Steven Moran MD Primary Care Provid er Allergies No known active allergies Medications aspirin (ADULT LOW DOSE ASPIRIN) 81 MG EC tablet 11/13/2009 Active lisinopril (PRINIVIL,ZESTRI L) 5 MG tablet Take 1 tablet by mouth every morning. 01/26/2025 Active metoprolol succinate (TOPROL-XL) 50 MG 24 hr tablet Take 1 tablet by mouth every morning. 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 11/10/2009 Encounters Date Type Department Care Team Description 05/31/2025 9:45 AM EDT Pre-Admission Testing [facility] Pre-Procedure Evaluation Department Please See [place]oint[place] [phone] Fahad Whitaker MD, PhD 05/31/2025 Orders Only [facility] [address] [place] [phone] Homehealth, Interface ProviderMD 05/17/2025 Telephone [facility] Department of Orthopaedic Surgery, Arthroplasty Service [address] [facility], 3rd Floor, [address] [place] [address] Beatrice Muniz Kym 04/30/2025 Telephone [facility] Department of Orthopaedic Surgery, Arthroplasty Service [address] [facility], 3rd Floor, [address] [place] [address] Fahad Whitaker MD, PhD 04/25/2025 12:15 PM EDT Office Visit [facility] Department of Orthopaedic Surgery, Arthroplasty Service [address] [facility], 3rd Floor, [address] [place] [address] Fahad Whitaker MD, PhD Primary osteoarthritis of left hip (Primary Dx) 04/25/2025 11:03 AM EDT - 04/25/2025 11:59 PM EDT Hospital Encounter [facility] Imaging - Xray, [place] [address] [facility], 3rd [place] [address] Fahad Whitaker MD, PhD Discharge Disposition: Home or Self Care 04/25/2025 Orders Only [facility] Orthopaedic Oncology [address] [facility], 3rd Floor, [address] [place] [phone] Nelson Powell Primary osteoarthritis of left hip 04/25/2025 Orders Only [facility] Department of Orthopaedic Surgery, Arthroplasty Service [address] [facility], 3rd Floor, [address] [place] [address] Abraham Gallagher MA Primary osteoarthritis of left hip (Primary Dx) 04/25/2025 Orders Only [facility] Department of Orthopaedic Surgery, Arthroplasty Service [address] [facility], 3rd Floor, [address] [place] [phone] Abraham Gallagher MA Hip pain (Primary Dx) 04/25/2025 Orders Only [facility] Orthopaedic Oncology [address] [facility], 3rd Floor, [address] [place] [address] Nelson Powell Primary osteoarthritis of left hip (Primary Dx) from Last 3 Months Social History Tobacco [...] Mass Index 25.94 05/31/2025 9:46 AM EDT Plan of Treatment Upcoming Encounters Date Type Department Care Team (Latest Contact Info) Description 06/12/2025 Procedure Pass [facility] PERIOPERATIVE DEPT [address] [place] [phone] 06/12/2025 11:45 AM EDT Hospital Encounter [facility] PERIOPERATIVE DEPT [address] [place] [phone] Fahad Whitaker MD, PhD [address] [place] [address] [address] [email or web address] 06/12/2025 11:45 AM EDT Anesthesia Event [facility] PERIOPERATIVE DEPT [address] [place] [phone] Diana Ferreira RN [address] [place] [phone] [email or web address] 06/12/2025 11:45 AM EDT - 06/12/2025 1:45 PM EDT Surgery [facility] PERIOPERATIVE DEPT [address] [place] [phone] Fahad Whitaker MD, PhD [address] [facility] [address] [place] [address] [email or web address] ARTHROPLASTY TOTAL HIP 07/20/2025 8:30 AM EST Office Visit [facility] Department of Orthopaedic Surgery, Arthroplasty Service [address] [facility], 3rd Floor, [address] [place] [address] Satinder Herbert PA-C [address] [facility] [place] [address] [email or web address] 09/19/2025 9:30 AM EST Office Visit [facility] Department of Orthopaedic Surgery, Arthroplasty Service [address] [facility], 3rd Floor, [address] [place] [address] Fahad Whitaker MD, PhD [address] [place] [address] [address] [place] [address] [email or web address] Scheduled Procedures Name Priority Associated Diagnoses Date/Ti me ARTHROPLASTY TOTAL HIP Primary osteoarthritis of left hip 06/12/2025 11:45 AM EDT Health Maintenance Due Date Last Done Comments Adult Td,Tdap Booster 1957 CREATININE LEVEL 1957 LIPID PANEL 1957 POTASSIUM LEVEL 1957 DEPRESSION SCREENING 1969 HEPATITIS C SCREENING 1975 SCREENING FOR DIABETES 02/01/1992 COLOGUARD 2002 COLONOSCOPY 2002 COLORECTAL CANCER SCREENING 2002 FIT TEST 2002 FOBT 2002 SIGMOIDOSCOPY 2002 VIRTUAL COLONOSCOPY 2002 PNEUMOCOCCAL VACCINES (50+ y ears) (1 of 1 - PCV) 2007 ZOSTER VACCINES (1 of 2) 2007 RSV VACCINE (1 - Risk 60-74 years 1-dose series) 2017 INFLUENZA VACCINE (#1) 2025 COVID-19 VACCINE (1 - 2024-2 5 season) 2025 SMOKING STATUS SCREENING (On ce After 26 Yrs) Completed 05/31/2025 HEPATITIS A VACCINES Aged Out No long [...] S.aureus) NEGATIVE FOR MRSA (Methicillin Resistant S.aureus) [facility] MSSA PCR SCREEN NEGATIVE FOR MSSA (Methicillin Susceptible S.aureus) NEGATIVE FOR MSSA (Methicillin Susceptible S.aureus) [facility] Comment:This test was conduc xochilt as part of Pre-Operative Screening for Staphylococcus aureus. Please direct any questions regarding this result to the Ordering Provider. Nasal (Nasal) 04/25/2025 1:1 1 PM EDT 04/25/2025 2:59 PM EDT us Laurie Del Rio PA-C NON CULTURE MICROBIOLOGY Marina l Result [facility] [address] [place] [address] * XR HIP 3+ VW LEFT PLUS [...] clinician's provided indication for this examination in [facility]: S/P Joint Replacement COMPARISON: XR LOWER EXTREMITY [...] XR LOWER EXTREMITY OUTSIDE WITH INTERPRETATION OR [id number] FINDINGS: Pelvis: Lumbosacral and sacroiliac degenerative changes. [...] Res ult from Last 3 Months Insurance [facility] Care Teams Biology Teacher Relationship Specialty Start Date End Date Luisa, Steven Armas, MD [address] [place] [address] [phone] PCP - General Internal Medicine 02/05/25 Additional Source Comments The information contained in this document represents components of the legal health record. It is not the complete legal health record.[facility]
--- OUTSIDE RECORDS SUMMARY | 2025-05-31 16:30 | XMS_ITS | Encounter Summary ---
Author Organization [facility] Address [address] [place] [address] Phone Care Team Providers Care Electrical Instrumentation Technician Name Role Phone Steven Moran MD Primary Care Provid er Encounter Details Date Type Department Care Team (Late st Contact Info) Description 04/25/2025 Orders Only [facility] Orthopaedic Oncology [address] [facility], 3rd Floor, [address] [place] [address] Nelson Powell [address] [place] [address] [email or web address] Primary osteoarthritis of left hip Social [...] (Latest Contact Info) Description 06/12/2025 Procedure Pass [facility] PERIOPERATIVE DEPT [address] [place] [phone] 06/12/2025 11:45 AM EDT Hospital Encounter [facility] PERIOPERATIVE DEPT [address] [place] [phone] Fahad Whitaker MD, PhD [address] [place] [phone] [email or web address] 06/12/2025 11:45 AM EDT Anesthesia Event [facility] PERIOPERATIVE DEPT [address] [place] [phone] Diana Ferreira RN [address] [place] [phone] [email or web address] 06/12/2025 11:45 AM EDT - 06/12/2025 1:45 PM EDT Surgery [facility] PERIOPERATIVE DEPT [address] [place] [phone] Fahad Whitaker MD, PhD [address] [place] [phone] [email or web address] ARTHROPLASTY TOTAL HIP 07/20/2025 8:30 AM EST Office Visit [facility] Department of Orthopaedic Surgery, Arthroplasty Service [address] [place] [address], 3rd Floor, [address] [place] [address] Satinder Herbert PA-C [address] [place] [phone] [email or web address] 09/19/2025 9:30 AM EST Office Visit [facility] Department of Orthopaedic Surgery, Arthroplasty Service [address] [place] [address], 3rd Floor, [address] [place] [address] Fahad Whitaker MD, PhD [address] [place] [phone] [email or web address] Scheduled Procedures Name Priority Associated Diagnoses [...] S.aureus) NEGATIVE FOR MRSA (Methicillin Resistant S.aureus) [facility] MSSA PCR SCREEN NEGATIVE FOR MSSA (Methicillin Susceptible S.aureus) NEGATIVE FOR MSSA (Methicillin Susceptible S.aureus) [facility] Comment:This test was conduc xochilt as part of Pre-Operative Screening for Staphylococcus aureus. Please direct any questions regarding this result to the Ordering Provider. Nasal (Nasal) 04/25/2025 1:1 1 PM EDT 04/25/2025 2:59 PM EDT us Laurie Eliane PA-C NON CULTURE MICROBIOLOGY Marina l Result [facility] [address] [place] [address] documented in this encounter Visit Diagnoses Diagnosis Primary osteoarthritis of left hip Primary osteoarthritis of left hip documented in this encounter Care Teams Electrical Instrumentation Technician Relationship Specialty Start Date End Date Steven Moran MD [address] [place] [phone] PCP - General Internal Medicine 02/05/25 documented as of this encounter Additional Source Comments The information contained in this document represents components of the legal health record. It is not the complete legal health record.[facility]
--- OUTSIDE RECORDS SUMMARY | 2025-05-31 16:30 | XMS_ITS | Patient Health Record ---
Author Organization [facility] Address [address] [place] [address] Care Team Providers Care Meter Supervisor Name Role Phone Marychuy (RETIRED) Babar LANDON Primary Care Provide r Unavailable Tee Villalobos Unavailable [phone] Reason For Referral No Information Medications Medication SIG (Take, Route, Fr equency, Duration) Notes Start Date End Date Status MoviPrep 100 GM as directed Orally a s directed for 1 dose 03/22/2014 Active Aspir-81 Active Metoprolol Succinate ER Active Problems Problem Type SNOMED Code ICD Code Onset Dates Problem Status W/U Status Risk Notes Problem Colon cancer screening (406170362) Colon cancer screening (V76.51) Active confirmed Problem Long-term use of aspirin therapy (V58.66) Active confirmed Plan Of Treatment Future Test Test Name Order Date COLONOSCOPY 03/22/2014 Insurance Providers Payer Name Payer Address Payer Phone Subscriber Number Group Number Insured Name Patient Relationship to Insured Coverage Start Date Coverage End Date [facility] [address] [place] [address] [id number] JANUARYSTEPHEN Self - patient is the insured Medical (General) History Medical History History ICD Code Denies NE,DM,Lung disease,renal disease Blind as described below HTN IVC Filter CVA's in relation to his thoracic aortic dissection as described below Surgical History Surgery Date(Month/Year) Thoracic aortic dissection a t [facility] with subsequent surgery and grafting--he had subsequent blindness,CVA's, loss of sensation and some motor on the left UE, loss of some toes on both feet 11/2009 Broken wrist
--- OUTSIDE RECORDS SUMMARY | 2025-05-31 16:30 | XMS_ITS | Encounter Summary ---
Author Organization [facility] Address [address] [place] [address] Phone Care Team Providers Care Specification Consultant Name Role Phone Steven Moran MD Primary Care Provid er Encounter Details Date Type Department Care Team (Late st Contact Info) Description 04/30/2025 Telephone [facility] Department of Orthopaedic Surgery, Arthroplasty Service [address] [facility], 3rd Floor, [address] [place] [address] Fahad Whitaker MD, PhD 55 [facility] [address] [place] [address] [email or web address] Social History Tobacco Use Types Packs/Day Years [...] Contact Info) Description 06/12/2025 Procedure Pass [facility] PERI[facility]IVE DEPT [address] [place] [phone] 06/12/2025 11:45 AM EDT Hospital Encounter [facility] DEPT [address] [place] [phone] Fahad Whitaker MD, PhD [address] [place] [phone] [email or web address] 06/12/2025 11:45 AM EDT Anesthesia Event [facility] PER[facility]IVE DEPT [address] [place] [phone] Diana Ferreira RN [address] [place] [phone] [email or web address] 06/12/2025 11:45 AM EDT - 06/12/2025 1:45 PM EDT Surgery [facility] PER[facility]IVE DEPT [address] [place] [phone] Fahad Whitaker MD, PhD [address] [place] [address] [email or web address] ARTHROPLASTY TOTAL HIP 07/20/2025 8:30 AM EST Office Visit [facility] Department of Orthopaedic Surgery, Arthroplasty Service [address] [place] [address], 3rd Floor, [address] [place] [address] Satinder Herbert PA-C [address] [place] [address] [email or web address] 09/19/2025 9:30 AM EST Office Visit [facility] Department of Orthopaedic Surgery, Arthroplasty Service [address] [facility], 3rd Floor, [address] [place] [address] Fahad Whitaker MD, PhD 55 [facility] [address] [place] [address] [email or web address] Scheduled Procedures Name Priority Associated Diagnoses Date/Ti me ARTHROPLASTY TOTAL HIP Primary osteoarthritis of left hip 06/12/2025 11:45 AM EDT documented as of this encounter Visit Diagnoses Not on filedocumented in this encounter Care Teams Specification Consultant Relationship Specialty Start Date End Date Steven Moran MD [address] [place] [phone] PCP - General Internal Medicine 02/05/25 documented as of this encounter Additional Source Comments The information contained in this document represents components of the legal health record. It is not the complete legal health record.[facility]
== END 2025-05-31 11:38 | disposition home or self-care (01) ==
LOC: HO.LAB 11:37
PROVIDERS: PCP Internal Medicine; Visit Provider Physician Assistant
DX: R74.8 Abnormal levels of other serum enzymes (principal)
CPT/HCPCS: 36415; 80076

== ENCOUNTER 2025-06-04 14:50 | Outpatient (AMB) | payer BC, SELFPAY ==
--- OUTSIDE RECORDS SUMMARY | 2025-05-31 09:45 | XMS_ITS | Encounter Summary ---
Author Organization [facility] Address [address] [place] [address] Phone Care Team Providers Care Social Media Intern Name Role Phone Steven Moran MD Primary Care Provid er Encounter Details Date Type Department Care Team (Late st Contact Info) Description 05/31/2025 9:45 AM EDT Pre-Admission Testing [facility] Pre-Procedure Evaluation Department [place] [address] Fahad Whitaker MD, PhD [address] [place] [address] [address] [email or web address] Anesthesia Record Procedure Summary Procedure Name Responsible [...] surgeon gives you different instructions, go to: [facility] main [place] in [address], 3rd floor Center for Perioperative Care (LAUNDRY ATTENDANT) For more information about preparing for your surgery go to the [facility] Center for Perioperative Care website: www.mass[facility].org/surgery/perioperative-care/vtqvzenfu-vls-xlgtzgt Or search for the website with the phrase: [facility] preparing for surgery. documented in this encounter Plan of Treatment Upcoming Encounters Date Type Department Care Team (Latest Contact Info) Description 06/12/2025 Procedure Pass [facility] PERIOPERATIVE DEPT [address] [place] [phone] 06/12/2025 11:45 AM EDT Hospital Encounter [facility] PERIOPERATIVE DEPT [address] [place] [address] [phone] Fahad Whitaker MD, PhD [address] [place] [address] [email or web address] 06/12/2025 11:45 AM EDT Anesthesia Event [facility] PERIOPERATIVE DEPT [address] [place] [address] [phone] Diana Ferreira RN [address] [place] [phone] [email or web address] 06/12/2025 11:45 AM EDT - 06/12/2025 1:45 PM EDT Surgery [facility] PERIOPERATIVE DEPT [address] [place] [phone] Fahad Whitaker MD, PhD [address] [place] [address] [email or web address] ARTHROPLASTY TOTAL HIP 07/20/2025 8:30 AM EST Office Visit [facility] Department of Orthopaedic Surgery, Arthroplasty Service [address] [place] [address], 3rd Floor, [address] [place] [address] Satinder Herbert PA-C [address] [place] [address] [email or web address] 09/19/2025 9:30 AM EST Office Visit [facility] Department of Orthopaedic Surgery, Arthroplasty Service [address] [facility], 3rd Floor, [address] [place] [address] Fahad Whitaker MD, PhD 55 [facility] [address] [place] [address] [email or web address] Scheduled Procedures Name Priority Associated Diagnoses Date/Ti me ARTHROPLASTY TOTAL HIP Primary osteoarthritis of left hip 06/12/2025 11:45 AM EDT documented as of this encounter Visit Diagnoses Not on filedocumented in this encounter Care Teams Social Media Intern Relationship Specialty Start Date End Date Steven Moran MD [address] [place] [phone] PCP - General Internal Medicine 02/05/25 documented as of this encounter Additional Source Comments The information contained in this document represents components of the legal health record. It is not the complete legal health record.[facility]
--- OUTSIDE RECORDS SUMMARY | 2025-06-04 08:44 | XMS_ITS | Encounter Summary ---
Author Organization [facility] Address [address] [place] [phone] Phone Care Team Providers Care Program Associate Name Role Phone Steven Moran MD Primary Care Provid er Encounter Details Date Type Department Care Team (Late st Contact Info) Description 06/04/2025 8:44 AM EDT Hospital Encounter [facility], X-Ray - [facility] [address] [place] [address] Fahad Whitaker MD, PhD [address] [place] [address] [phone] [email or web address] Arrived Social History Tobacco Use Types Packs/Day Years [facility] [address] [place] [phone] 06/12/2025 11:45 AM EDT Hospital Encounter [facility] PERIOPERATIVE DEPT [address] [place] [phone] Fahad Whitaker MD, PhD [address] [place] [phone] [email or web address] 06/12/2025 11:45 AM EDT Anesthesia Event [facility] PERIOPERATIVE DEPT [address] [place] [phone] Diana Ferreira RN [address] [place] [phone] [email or web address] 06/12/2025 11:45 AM EDT - 06/12/2025 1:45 PM EDT Surgery [facility] PERIOPERATIVE DEPT [address] [place] [phone] Fahad Whitaker MD, PhD [address] [place] [phone] [email or web address] ARTHROPLASTY TOTAL HIP 07/20/2025 8:30 AM EST Office Visit [facility] Department of Orthopaedic Surgery, Arthroplasty Service [address] [place] [address], 3rd Floor, [address] [place] [address] Satinder Herbert PA-C [address] [place] [phone] [email or web address] 09/19/2025 9:30 AM EST Office Visit [facility] Department of Orthopaedic Surgery, Arthroplasty Service [address] [place] [address], 3rd Floor, [address] [place] [address] Fahad Whitaker MD, PhD [address] [place] [phone] [email or web address] Scheduled Procedures Name Priority Associated Diagnoses Date/Ti me ARTHROPLASTY TOTAL HIP Primary osteoarthritis of left hip 06/12/2025 11:45 AM EDT documented as of this encounter Procedures Procedure Name Priority Date/Time Associated Diagnosis Comments XR PELVIS 1-2 VIEW Routine 06/04/2025 9: 13 AM EDT Hip pain documented in this encounter Results * XR PELVIS 1-2 VIEW (06/04/2025 9:13 AM EDT) Anatomical Region Laterality Modality Pelvis Computed Radiogr aphy 06/04/2025 10:2 5 AM EDT Impressions 06/04/2025 10:27 AM EDT Severe left and moderate to severe right hip degenerative changes. Narrative 06/04/2025 10:27 AM EDT XR PELVIS 1-2 VIEW Referring clinician's provided indication for this examination in Epic: Pain COMPARISON: XR HIP 3+ VW LEFT PLUS PELVIS FINDINGS: No displaced fracture. Intact sacroiliac joints and pubic symphysis. Degenerative changes of the lower lumbar spine. Severe left hip degenerative changes with lateral uncovering of the femoral head, bulky marginal osteophytes and articular surface remodeling. Moderate to severe right hip degenerative changes. Procedure Note Kristi Shannon MD - 06/04/2025 XR PELVIS 1-2 VIEW Referring clinician's provided indication for this examination in [facility]:Pain COMPARISON: XR HIP 3+ VW LEFT PLUS PELVIS FINDINGS: No displaced fracture. Intact sacroiliac joints and pubic symphysis.Degenerative changes of the lower lumbar spine. Severe left hip degenerative changes with lateral uncovering of thefemoral head, bulky marginal osteophytes and articular surface remodeling.Moderate to severe right hip degenerative changes. IMPRESSION: Severe left and moderate to severe right hip degenerative changes. us Fahad Whitaker MD, PhD IMG XR PELVIS Final Res ult documented in this encounter Visit Diagnoses Diagnosis Hip pain Pain in joint, pelvic region and thigh Primary osteoarthritis of left hip documented in this encounter Care Teams Program Associate Relationship Specialty Start Date End Date Steven Moran MD [address] [place] [address] PCP - General Internal Medicine 02/05/25 documented as of this encounter Additional Source Comments The information contained in this document represents components of the legal health record. It is not the complete legal health record.[facility]
[2025-06-04 15:16] VITALS: BP 110/60; PULSE 70; TEMP 35.9; O2SAT 97; BMI 25.4
--- NOTE | 2025-06-04 15:16 | MHC.PC.OV ---
Vital Signs 06/04/25 15:16 Height 6 ft Weight 186 lb 15.232 oz BMI 25.4 BP 110/60 Blood Pressure Location Lt brachial Position Sitting Pulse 70 Pulse Source Pulse Oximeter Temp 96.6 F L Temp Source Temporal Artery Scan Pulse Oximetry (%) 97 Oxygen Delivery Method Room Air Intake Visit Reasons: pe Intake Note: Patient is here today for a physical. Show Dog Trainer Required: No Process Development Associate: Present Accompanied by: Spouse Allergies No Known Allergies Allergy (Verified 06/04/25 15:42) Medication List - Last Reconciled 06/04/25 by Maximilian Jean-Baptiste PA-C [A raised toilet seat As directed] aspirin (Adult Low Dose Aspirin) 81 mg PO DAILY cane As directed lisinopril 5 mg PO DAILY 90 days metoprolol succinate ER 50 mg PO DAILY 90 days Tobacco use date assessed: 06/04/25 Fall risk assessment: No Falls in past year Last assessed Fall Risk: 06/04/25 Dental Screening Dental Screen Date: 05/16/25 HPI pe HPI Details Patient is a 70-year-old male here today for a routine annual physical Patient has a past medical history significant for hypertension and history of aortic dissection status post repair in 2009. 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 He is followed by [facility] and thoracic surgeon Dr. Thompson are mildly dilated aortic root at 4.9 mm with moderate aortic regurg. He continues withechocardiogram for evaluation .. Elevated liver enzymes: Likely in the setting of taking more Tylenol, repeat liver enzymes stabilized Osteoarthritis left hip: Due for left hip replacement in [place] 06/12/2025 notably his left hip and knee pain, which have resulted in compromised balance and frequent falls. He reports a noticeable discrepancy in leg length that may influence his instability. The progressive nature of his symptoms has affected his daily routines and mobility, with a significant challenge occurring when attempting to navigate stairs and complete basic activities like dressing. 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 Social History Housing: House Patient Tobacco Use Status: Never used Tobacco e-Cigarette/Vaping Use: Never Used Second Hand Smoke Exposure: No service: No Current occupational status: disabled Cognitive needs: No Vision needs: Yes (Legally Blind) Questionnaire PHQ-9 Over the last 2 weeks, how often have you been bothered by any of the following problems? 1. Little interest or pleasure in doing things: not at all 2. Feeling down, depressed, or hopeless: not at all 3. Trouble falling or staying asleep, or sleeping too much: not at all 4. Feeling tired or having little energy: not at all 5. Poor appetite or overeating: not at all 6. Feeling bad about yourself - or that you are a failure or have let yourself or your family down: not at all 7. Trouble concentrating on things, such as reading the newspaper or watching television: not at all 8. Moving or speaking so slowly that other people could have noticed. Or the opposite - being so fidgety or restless that you have been moving around a lot more than usual: not at all 9. Thoughts that you would be better off or of hurting yourself in some way: not at all Total score: 0 Depression Screening Interpretation: Negative Depression Screening Done: Yes 13745 - PHQ-9 Billing: Yes Source: Developed by Drs. Tee Mckeon, Dena Watson, Panda Sheehan and colleagues, with an educational jose from [employer]. Thrive Questionnaire Date Thrive assessed: 05/16/25 I am a: Patient What is your living situation today?: I have a steady place to live Within the past 12 months, did the food you bought not last and you didn't have the money to get more?: Never true Within the past 12 months, did you worry whether your food would run out before you got money to buy more?: Never true Do you have trouble paying for medicines?: No Do you have trouble getting transportation to medical appointments?: No Do you have trouble paying your heating and electricity bill?: No Do you have trouble taking care of your child, family member or friend?: No Do you have trouble with day-to-day activities such as bathing, preparing meals, shopping, managing finances, etc.?: Yes Are you currently unemployed and looking for a job?: I choose not to answer this question Are you interested in more education?: No Please select the resources that you would like help with: None Currently or been in a relationship where the following occur: No concerns reported THRIVE Score: 0 MICKEY-7 AMB Questionnaire MICKEY-7 Date MICKEY - 7 assessed: 05/16/25 Source: Developed by Drs. Tee Mckeon, Dena Watson, Panda Sheehan and colleagues, with an educational jose from [employer]. Review of Systems Const Denies body aches, Denies chills, Denies excessive sweating, Denies fatigue, Denies fever(s) and Denies headache(s) Eyes Denies blurry vision ENT Denies dysphagia, Denies vertigo, Denies dizziness, Denies headache(s), Denies hearing loss and Denies tinnitus Card Denies chest pain, Denies chest pain with activity, Denies syncope, Denies irregular heart rhythm and Denies dyspnea Resp Denies chest congestion, Denies cough, Denies hemoptysis, Denies dyspnea and Denies wheezing GI Denies abdominal pain, Denies melena, Denies hematochezia, Denies coffee ground emesis, Denies dysphagia, Denies diarrhea, Denies nausea and Denies vomiting Denies difficulty urinating, Denies dysuria, Denies urinary frequency, Denies urinary hesitancy and Denies urinary urgency Musc Denies arthralgias, Denies limited range of motion, Denies muscle cramps and Denies muscle weakness Skin/Breast Denies rash and Denies skin ulcer Neuro Denies Abnormal speech present, Denies confusion, Denies vertigo, Denies dizziness, Denies syncope, Denies headache(s), Denies memory loss and Denies seizure-like activity Psych Denies anxiety, Denies confusion, Denies depression, Denies memory loss, Denies panic attacks and Denies paranoia Endo Denies excessive sweating, Denies fatigue, Denies flushing, Denies polydipsia and Denies polyuria Aller/Immun Denies wheezing Physical exam (Primary Care) Vital Signs: Last Vital Signs Temp 96.6 F L 06/04/25 15:16 Pulse 70 06/04/25 15:16 BP 110/60 06/04/25 15:16 Pulse Ox 97 06/04/25 15:16 Oxygen Delivery Method Room Air 06/04/25 15:16 BMI result Body Mass Index 25.4 Tobacco/Smoking Status: Tobacco use Status Tobacco use date assessed 06/04/25 06/04/25 15:23 Patient Tobacco Use Status Never used Tobacco 06/04/25 15:23 e-Cigarette/Vaping Use Never Used 06/04/25 15:23 PHQ-9: PHQ-9 Score PHQ-9: Total score 0 06/04/25 15:47 Depression Screening Interpretation: Negative Thrive Assessment: Date of Thrive Assessment Date Thrive assessed 05/16/25 06/04/25 15:23 Currently or been in a relationship where the following occur: No concerns reported Const General: cooperative, comfortable, no acute distress, alert and awake; No confusion Orientation/consciousness: oriented to person, oriented to place, patient oriented x3 and No confusion HENMT Head: Yes normocephalic Ears: external ears normal and TM's normal bilaterally Face and sinus: No sinus tenderness Mouth: Normal oral and palatal mucosa present and tongue normal Teeth and gingiva: dentition normal and gingiva normal Throat: Yes posterior oropharynx normal, Yes tonsils normal and Yes uvula midline Eyes Conjunctivae: conjunctivae normal Sclerae: sclerae normal Pupils: Equal, round and reactive pupils present EOM: EOMs intact bilaterally Direct Ophthalmoscopy: No no photophobia Neck Neck: Yes no lymphadenopathy, No tender and Yes no JVD Thyroid: Thyroid normal Carotids: no bruits Chest Chest palpation & inspection: no tenderness Resp Effort & Inspection: normal respiratory effort, no audible wheezes, not labored and no stridor Auscultation: no crackles, no rales, no rhonchi and no wheezes Cardio Jugular venous distension: no JVD Rate: regular rate, not bradycardic and not tachycardic Rhythm: regular rhythm Bruits: no carotid bruits Peripheral pulses: Peripheral pulses 2+ throughout GI Inspection: Yes normal to inspection, No abdominal wall ecchymosis and No visible herniation Palpation (GI): Soft to palpation, nontender, no guarding, not rigid and No hepatosplenomegaly present Auscultation: normoactive bowel sounds General: Yes no CVA tenderness Back/Spine/Pelvis Back: no CVA tenderness and No back tenderness Cervical Spine: cervical ROM normal Thoracic/Lumbar Spine: thoracic and lumbar spine normal to inspection, straight leg raise negative bilaterally, No thoraco-lumbar ROM limited and No lumbar spinal tenderness Skin Lesions: no lesions Rashes: no rashes Wounds: no wounds Neuro General: oriented to person, oriented to place, patient oriented x3, CN's II-XI intact bilaterally and No confusion Cranial nerves: Yes Equal, round and reactive pupils present and Yes Normal accommodation reflex present Cognition (Neuro): normal cognition Speech: No Abnormal speech present Gait exam (Neuro): Normal gait present Motor exam (neuro): 5/5 motor strength present throughout Extrem Other: NOTABLE LEG LENGTH DISCREPANCY, LEFT LEG SHORTER THAN RIGHT LEG, AMBULATING WITH AN ANTALGIC GAIT WITH THE ASSISTANCE FROM HIS Right upper extremity: full ROM; no cyanosis Left upper extremity: full ROM; no cyanosis Right lower extremity: no edema Left lower extremity: no edema Psych Appearance: grossly normal Mental Status: mental status grossly normal Affect: normal affect Attitude: cooperative Thought process: Normal thought process present Coding Level of Care Code Est Pt Prev Care >65y(10546) Diagnoses Annual physical exam Z00.00 Colon cancer screening Z12.11 Elevated liver enzymes R74.8 Primary osteoarthritis of left hip M16.12 Osteoarthritis type: primary Additional Codes PHQ-9 - 68233 - PHQ-9 Billing: Yes ([id number]) Assessment & Plan Assessment & Plan (1) Annual physical exam: Code(s): Z00.00 - Encounter for general adult medical examination without abnormal findings Category: Medical Plan: As per HPI (2) Colon cancer screening: Code(s): Z12.11 - Encounter for screening for malignant neoplasm of colon Category: Medical Plan: Patient willing to get colonoscopy (3) Elevated liver enzymes: Code(s): R74.8 - Abnormal levels of other serum enzymes Category: Medical Plan: Patient's liver enzyme normalized after discontinuing Tylenol. (4) Osteoarthritis of left hip: Code(s): M16.12 - Unilateral primary osteoarthritis, left hip Category: Medical Qualifiers: Osteoarthritis type: primary Qualified Code(s): M16.12 - Unilateral primary osteoarthritis, left hip Plan: Patient due for left hip total replacement in [place] on 06/12/2025. Thus far he is cleared for surgery with normal labs, stable vitals and normal EKG. Orders: Referrals Gastroenterology Referral Z12.11 - Encounter for screening for malignant neoplasm of colon Medications: New chlorhexidine gluconate 4% (Hibiclens) 1 appl topical ONCE 946 mL 0RF 2 doses M25.552 - Pain in left hip, Z01.818 - Encounter for other preprocedural examination
--- OUTSIDE RECORDS SUMMARY | 2025-06-04 16:44 | XMS_ITS | Encounter Summary ---
Author Organization [facility] Address [address] [place] [phone] Phone Care Team Providers Care Support Services Rep Name Role Phone Steven Moran MD Primary Care Provid er Reason for Referral * Home Health Care - New Request Specialty Diagnoses / Procedures Referred By Lynsey donato Referred To Contact Home Health Services Fahad Whitaker MD, PhD [address] [place] [address] [address] Phone: tel: fax: mailto:[email or web address] Clarissa [facility] [address] [place], [place] Phone: tel: fax: Referral ID Status Reason Start Date Expiration Date V isits Requested Visits Authorized [id number] New Request 05/31/2025 05/31/2026 1 1 Encounter Details Date Type Department Care Team (Late st Contact Info) Description 05/31/2025 Orders Only [facility] [address] [place], [place] [phone] Andrea Ngo [place] [facility] [place] [address] Social History Tobacco Use Types [facility] [address] [place] [phone] 06/12/2025 11:45 AM EDT Hospital Encounter [facility] PERIOPER[facility]IVE DEPT [address] [place] [phone] Fahad Whitaker MD, PhD [address] [place] [id number] [email or web address] 06/12/2025 11:45 AM EDT Anesthesia Event [facility] PERIOPERATIVE DEPT [address] [place] [phone] Diana Ferreira RN [address] [place] [phone] [email or web address] 06/12/2025 11:45 AM EDT - 06/12/2025 1:45 PM EDT Surgery [facility] PERIOPER[facility]IVE DEPT [address] [place] [phone] Fahad Whitaker MD, PhD [address] [place] [id number] [email or web address] ARTHROPLASTY TOTAL HIP 07/20/2025 8:30 AM EST Office Visit [facility] Department of Orthopaedic Surgery, Arthroplasty Service [address] [facility], 3rd Floor, [address] [place] [address] Satinder Herbert PA-C [address] [facility] [place] [address] [email or web address] 09/19/2025 9:30 AM EST Office Visit [facility] Department of Orthopaedic Surgery, Arthroplasty Service [address] [facility], [address]rd Floor, [address] [place] [address] Fahad Whitaker MD, PhD [address] [facility] [address] [place] [address] [email or web address] Scheduled Procedures Name Priority Associated Diagnoses Date/Ti me ARTHROPLASTY TOTAL HIP Primary osteoarthritis of left hip 06/12/2025 11:45 AM EDT Scheduled Referrals Name Type Priority Associated Diagnoses Orde r Schedule 4NEXT REFERRAL TO HOME HEALTH Outpatient Referral Routine Ordered: 05/31/2025 documented as of this encounter Visit Diagnoses Not on filedocumented in this encounter Care Teams Support Services Rep Relationship Specialty Start Date End Date Steven Moran MD [address] [place] [phone] PCP - General Internal Medicine 02/05/25 documented as of this encounter Additional Source Comments The information contained in this document represents components of the legal health record. It is not the complete legal health record.[facility]
--- OUTSIDE RECORDS SUMMARY | 2025-06-04 16:44 | XMS_ITS | Patient Health Record ---
Author Organization [facility] Address [address] [place] [phone] Care Team Providers Care Clinical Staff Educator Name Role Phone Marychuy (RETIRED) Babar LANDON Primary Care Provide r Unavailable Tee Villalobos Unavailable [phone] Reason For Referral No Information Medications Medication SIG (Take, Route, Fr equency, Duration) Notes Start Date End Date Status MoviPrep 100 GM as directed Orally a s directed for 1 dose 03/22/2014 Active Aspir-81 Active Metoprolol Succinate ER Active Problems Problem Type SNOMED Code ICD Code Onset Dates Problem Status W/U Status Risk Notes Problem Colon cancer screening (154523162) Colon cancer screening (V76.51) Active confirmed Problem Long-term use of aspirin therapy (V58.66) Active confirmed Plan Of Treatment Future Test Test Name Order Date COLONOSCOPY 03/22/2014 Insurance Providers Payer Name Payer Address Payer Phone Subscriber Number Group Number Insured Name Patient Relationship to Insured Coverage Start Date Coverage End Date [facility] [address] [place] [address] [id number] JANUARYSTEPHEN Self - patient is the insured Medical (General) History Medical History History ICD Code Denies CT,DM,Lung disease,renal disease Blind as described below HTN IVC Filter CVA's in relation to his thoracic aortic dissection as described below Surgical History Surgery Date(Month/Year) Thoracic aortic dissection a t [facility] with subsequent surgery and grafting--he had subsequent blindness,CVA's, loss of sensation and some motor on the left UE, loss of some toes on both feet 11/2009 Broken wrist
--- OUTSIDE RECORDS SUMMARY | 2025-06-04 16:44 | XMS_ITS | Encounter Summary ---
Author Organization [facility] Address [address] [place] [address] Phone Care Team Providers Care Senior Java J2Ee Developer Name Role Phone Steven Moran MD Primary Care Provid er Encounter Details Date Type Department Care Team (Late st Contact Info) Description 06/01/2025 Telephone [facility] Department of Orthopaedic Surgery, Arthroplasty Service [address] [facility], 3rd Floor, [address] [place] [address] Fahad Whitaker MD, PhD [address] [facility] [address] [place] [address] [email or web address] Social History Tobacco Use Types Packs/Day [...] (Latest Contact Info) Description 06/12/2025 Procedure Pass [facility] PERIOPERATIVE DEPT [address] [place] [phone] 06/12/2025 11:45 AM EDT Hospital Encounter [facility] PERIOPERATIVE DEPT [address] [place] [phone] Fahad Whitaker MD, PhD [address] [place] [phone] [email or web address] 06/12/2025 11:45 AM EDT Anesthesia Event [facility] PERIOPERATIVE DEPT [address] [place] [phone] Diana Ferreira RN [address] [place] [phone] [email or web address] 06/12/2025 11:45 AM EDT - 06/12/2025 1:45 PM EDT Surgery [facility] PERIOPERATIVE DEPT [address] [place] [phone] Fahad Whitaker MD, PhD [address] [place] [phone] [email or web address] ARTHROPLASTY TOTAL HIP 07/20/2025 8:30 AM EST Office Visit [facility] Department of Orthopaedic Surgery, Arthroplasty Service [address] [place] [address], 3rd Floor, [address] [place] [address] Satinder Herbert PA-C [address] [place] [address] [email or web address] 09/19/2025 9:30 AM EST Office Visit [facility] Department of Orthopaedic Surgery, Arthroplasty Service [address] [place] [address], [address]rd Floor, [address] [place], [place] [phone] Fahad Whitaker MD, PhD [address] [place] [address] [email or web address] Scheduled Procedures Name Priority Associated Diagnoses Date/Ti me ARTHROPLASTY TOTAL HIP Primary osteoarthritis of left hip 06/12/2025 11:45 AM EDT documented as of this encounter Visit Diagnoses Not on filedocumented in this encounter Care Teams Senior Java J2Ee Developer Relationship Specialty Start Date End Date Steven Moran MD [address] [place] [phone] PCP - General Internal Medicine 02/05/25 documented as of this encounter Additional Source Comments The information contained in this document represents components of the legal health record. It is not the complete legal health record.[facility]
--- OUTSIDE RECORDS SUMMARY | 2025-06-04 16:44 | XMS_ITS | Clinical Summary ---
Author Organization [facility] Address [address] [place] [address] Phone Care Team Providers Care Industrial Equipment Wirer Name Role Phone Steven Moran MD Primary [...] Encounters Date Type Department Care Team Description 06/04/2025 8:44 AM EDT Hospital Encounter [facility], X-Ray - [facility] [address] [place] [address] Fahad Whitaker MD, PhD Arrived 06/01/2025 Telephone [facility] Department of Orthopaedic Surgery, Arthroplasty Service [address], 3rd Floor, [address] [place] [address] Fahad Whitaker MD, PhD 05/31/2025 9:45 AM EDT Pre-Admission Testing [facility] Pre-Procedure Evaluation Department [place] [phone] Fahad Whitaker MD, PhD 05/31/2025 Orders Only [facility] [address] [place] [phone] Homehealth, Andrea Robins MD 05/17/2025 Telephone [facility] Department of Orthopaedic Surgery, Arthroplasty Service [address], [address]rd Floor, [address] [place] [address] Beatrice Muniz 04/30/2025 Telephone [facility] Department of Orthopaedic Surgery, Arthroplasty Service [address], [address]rd Floor, [address] [place] [address] Fahad Whitaker MD, PhD 04/25/2025 12:15 PM EDT Office Visit [facility] Department of Orthopaedic Surgery, Arthroplasty Service [address], 3rd Floor, [address] [place] [phone] Fahad Whitaker MD, PhD Primary osteoarthritis of left hip (Primary Dx) 04/25/2025 11:03 AM EDT - 04/25/2025 11:59 PM EDT Hospital Encounter [facility] Imaging - Xray, [place] [address], [address]rd [place] [address] Fahad Whitaker MD, PhD Discharge Disposition: Home or Self Care 04/25/2025 Orders Only [facility] Orthopaedic Oncology [address], [address]rd Floor, [address] [place] [address] Nelson Powell Primary osteoarthritis of left hip 04/25/2025 Orders Only [facility] Department of Orthopaedic Surgery, Arthroplasty Service [address], [address]rd Floor, [address] [place] [address] Abraham Gallagher MA Primary osteoarthritis of left hip (Primary Dx) 04/25/2025 Orders Only [facility] Department of Orthopaedic Surgery, Arthroplasty Service [address], [address]rd Floor, [address] [place] [address] Abraham Gallagher MA Hip pain (Primary Dx) 04/25/2025 Orders Only [facility] Orthopaedic Oncology [address] [place] [address], 3rd Floor, [address] [place] [address] Nelson Powell Primary osteoarthritis of left hip [...] Contact Info) Description 06/12/2025 Procedure Pass [facility] [place] PERIOPERATIVE DEPT [address] [place] [phone] 06/12/2025 11:45 AM EDT Hospital Encounter [facility] PERIOPERATIVE DEPT [address] [place] [phone] Fahad Whitaker MD, PhD [address] [place] [address] [address] [place] [address] [email or web address] 06/12/2025 11:45 AM EDT Anesthesia Event [facility] PERIOPERATIVE DEPT [address] [place] [phone] Diana Ferreira RN [address] [place] [phone] [email or web address] 06/12/2025 11:45 AM EDT - 06/12/2025 1:45 PM EDT Surgery [facility] PERIOPERATIVE DEPT [address] [place] [phone] Fahad Whitaker MD, PhD [address] [place] [phone] [email or web address] ARTHROPLASTY TOTAL HIP 07/20/2025 8:30 AM EST Office Visit [facility] Department of Orthopaedic Surgery, Arthroplasty Service [address] [place] [address], 3rd Floor, [address] [place] [address] Satinder Herbert PA-C [address] [place] [phone] [email or web address] 09/19/2025 9:30 AM EST Office Visit [facility] Department of Orthopaedic Surgery, Arthroplasty Service [address] [place] [address], 3rd Floor, [address] [place] [address] Fahad Whitaker MD, PhD [address] [place] [phone] [email or web address] Scheduled Procedures Name Priority Associated Diagnoses [...] VACCINE (#1) 2025 COVID-19 VACCINE (1 - 2023-2 5 season) 2025 SMOKING STATUS SCREENING (On [...] 06/04/2025 9: 13 AM EDT Hip pain MRSA/MSSA PRE-OP PCR Routine 04/25/2025 1:11 PM EDT Primary osteoarthritis of left hip XR HIP 3+ VW LEFT PLUS PELVIS Routine 04/25/2025 12:00 PM EDT Primary osteoarthritis of left hip from Last 3 Months Results * XR PELVIS 1-2 VIEW (06/04/2025 [...] clinician's provided indication for this examination in Epic:Pain COMPARISON: XR HIP 3+ VW LEFT PLUS PELVIS FINDINGS: No displaced fracture. Intact sacroiliac joints and pubic symphysis.Degenerative changes of the lower lumbar spine. Severe left hip degenerative changes with lateral uncovering of thefemoral head, bulky marginal osteophytes and articular surface remodeling.Moderate to severe right hip degenerative changes. IMPRESSION: Severe left and moderate to severe right hip degenerative changes. Fahad Whitaker MD, PhD IMG XR PELVIS Final Res ult * Staphylococcus aureus (MRSA/MSSA) PCR, Preoperative (04/25/2025 1:11 PM EDT) MRSA PCR SCREEN NEGATIVE FOR MRSA (Methicillin Resistant S.aureus) NEGATIVE FOR MRSA (Methicillin Resistant S.aureus) [facility] MSSA PCR SCREEN NEGATIVE FOR MSSA (Methicillin Susceptible S.aureus) NEGATIVE FOR MSSA (Methicillin Susceptible S.aureus) [facility] Comment:This test was conduc xochilt as part of Pre-Operative Screening for Staphylococcus aureus. Please direct any questions regarding this result to the Ordering Provider. Nasal (Nasal) 04/25/2025 1:1 1 PM EDT 04/25/2025 2:59 PM EDT Laurie Del Rio PA-C NON CULTURE MICROBIOLOGY Marina dial Result [facility] [address] [place] [address] * XR HIP 3+ VW LEFT PLUS [...] XR LOWER EXTREMITY OUTSIDE WITH INTERPRETATION OR [id number] FINDINGS: Pelvis: Lumbosacral and sacroiliac degenerative changes. [...] Res ult from Last 3 Months Insurance [facility] Care Teams Industrial Equipment Wirer Relationship Specialty Start Date End Date Steven Moran MD [address] [place] [phone] PCP - General Internal Medicine 02/05/25 Additional Source Comments The information contained in this document represents components of the legal health record. It is not the complete legal health record.[facility]
--- OUTSIDE RECORDS SUMMARY | 2025-06-04 16:45 | XMS_ITS | Encounter Summary ---
Author Organization [facility] Address [address] [place] [address] Phone Care Team Providers Care Lean Manufacturing Coordinator Name Role Phone Steven Moran MD Primary Care Provid er Encounter Details Date Type Department Care Team (Late st Contact Info) Description 04/30/2025 Telephone [facility] Department of Orthopaedic Surgery, Arthroplasty Service [address], 3rd [address], [address] [place] [address] Fahad Whitaker MD, PhD [address] [facility] [address] [place] [address] [email or web address] Social History Tobacco Use Types Packs/Day Years [...] (Latest Contact Info) Description 06/12/2025 Procedure Pass [facility] PER[facility]IVE DEPT [address] [place] [phone] 06/12/2025 11:45 AM EDT Hospital Encounter [facility]PT [address] [place] [phone] Fahad Whitaker MD, PhD [address] [place] [phone] [email or web address] 06/12/2025 11:45 AM EDT Anesthesia Event [facility] [address] [place] [phone] Diana Ferreira RN [address] [place] [phone] [email or web address] 06/12/2025 11:45 AM EDT - 06/12/2025 1:45 PM EDT Surgery [facility]IVE [facility]PT [address] [place] [phone] Fahad Whitaker MD, PhD [address] [place] [phone] [email or web address] ARTHROPLASTY TOTAL HIP 07/20/2025 8:30 AM EST Office Visit [facility] Department of Orthopaedic Surgery, Arthroplasty Service [address] [place] [address], 3rd Floor, [address] [place] [address] Satinder Herbert PA-C [address] [place] [phone] [email or web address] 09/19/2025 9:30 AM EST Office Visit [facility] Department of Orthopaedic Surgery, Arthroplasty Service [address], [address], [address] [place] [address] Fahad Whitaker MD, PhD [address] [facility] [address] [place] [address] [email or web address] Scheduled Procedures Name Priority Associated Diagnoses Date/Ti me ARTHROPLASTY TOTAL HIP Primary osteoarthritis of left hip 06/12/2025 11:45 AM EDT documented as of this encounter Visit Diagnoses Not on filedocumented in this encounter Care Teams Lean Manufacturing Coordinator Relationship Specialty Start Date End Date Steven Moran MD [address] [place] [phone] PCP - General Internal Medicine 02/05/25 documented as of this encounter Additional Source Comments The information contained in this document represents components of the legal health record. It is not the complete legal health record.[facility]
== END 2025-06-04 16:10 | disposition home or self-care (01) ==
LOC: HO.HMCH 14:51
PROVIDERS: PCP Physician Assistant; Visit Provider Physician Assistant
DX: Z00.00 Encounter for general adult medical examination without abnormal findings (principal); Z12.11 Encounter for screening for malignant neoplasm of colon; R74.8 Abnormal levels of other serum enzymes; M16.12 Unilateral primary osteoarthritis, left hip

== ENCOUNTER → 2025-06-04 14:50 | Outpatient (BNVA) | payer BC, SELFPAY | PROVIDERS: PCP Internal Medicine; Visit Provider Physician Assistant | DX: Z00.00 Encounter for general adult medical examination without abnormal findings (principal); I10 Essential (primary) hypertension; R74.8 Abnormal levels of other serum enzymes; M16.12 Unilateral primary osteoarthritis, left hip | CPT/HCPCS: 96127 ==